=== PATIENT | female | born 1965 | race African-American/Black ===

== ENCOUNTER 2020-02-20 15:58 | Inpatient (IN) | payer MEDICARE, OTHER ==
[~2020-02-20] VITALS: Ht 162.6 cm; Wt 67.9 kg
[2020-02-20] MEDS ORDERED: IV NORMAL SALINE 1000ML BAG 1,000 ML IV ONE ×3 (16:45→17:30)
[2020-02-20 17:00] LABS: BASO # 0.1 x10^3/uL (0.0-0.2); BASO % 0 % (0-3); EOS # 0.1 x10^3/uL (0.0-0.7); EOS % 0 % (0-3); HEMATOCRIT 40.3 % (36.0-47.0); HEMOGLOBIN 13.4 g/dL (12.0-15.5); LYMPH # 1.8 x10^3/uL (1.0-4.8); LYMPH % 6 % (24-48); MEAN CORPUSCULAR HEMOGLOBIN 29 pg (25-35); MEAN CORPUSCULAR HGB CONC 33 g/dL (31-37); MEAN CORPUSCULAR VOLUME 86 fL (79-100); MONO # 1.5 x10^3/uL (0.0-1.1); MONO % 5 % (0-9); NEUT # 28.1 x10^3/uL (1.8-7.7); NEUT % 89 % (31-73); PLATELET COUNT 103 x10^3/uL (140-400); RED BLOOD COUNT 4.69 x10^6/uL (3.50-5.40); RED CELL DISTRIBUTION WIDTH 14.4 % (11.5-14.5); WHITE BLOOD COUNT 31.6 x10^3/uL (4.0-11.0)
[2020-02-20] MEDS ORDERED: ACETAMINOPHEN 500 MG TABLET PO ONE (17:00)
[2020-02-20] MEDS ORDERED: cefTRIAXone IV Push 1 GM VIAL. IVP ONE (17:00)
[2020-02-20 17:14] LABS: BILIRUBIN,URINE NEGATIVE (NEG); CLARITY,URINE CLOUDY; COLOR,URINE YELLOW; NITRITE,URINE NEGATIVE (NEG); PH,URINE 5.5 (<5.0-8.0); PROTEIN,URINE >=300 mg/dL (NEG-TRACE); UROBILINOGEN,URINE 0.2 mg/dL (0.2 mg/dL)
--- NOTE | 2020-02-20 17:15 | RAD ---
EXAM: PORTABLE CHEST 1V INDICATION: Reason: AMS / Spl. Instructions: / History: . TECHNIQUE: Single view COMPARISON: None FINDINGS: The heart size is normal. The great vessels appear unremarkable. There is no hilar or mediastinal mass. The lungs are clear. There is no pleural effusion or pneumothorax. There are no significant osseous abnormalities. IMPRESSION: No active cardiopulmonary disease. Electronically signed by: Jaron Harden MD (02/20/2020 5:12 PM) [facility] [place]
[2020-02-20 17:17] LABS: % BANDS 14 % (0-9); % LYMPHS 6 % (24-48); % MONOS 2 % (0-10); % SEGS 78 % (35-66); PLT ESTIMATE DECREASED (ADEQUATE)
[2020-02-20 17:20] LABS: RBC,URINE TNTC /HPF (0-2)
[2020-02-20 17:20] LABS: ALBUMIN/GLOBULIN RATIO 0.5 (1.0-1.7); CALCIUM 9.2 mg/dL (8.5-10.1); CREATININE 2.9 mg/dL (0.6-1.0); GFR 20.5; TOTAL BILIRUBIN 0.7 mg/dL (0.2-1.0); TOTAL PROTEIN 8.6 g/dL (6.4-8.2)
[2020-02-20 17:23] LABS: BACTERIA,URINE MANY /HPF (0-FEW); WBC,URINE TNTC /HPF (0-4)
[2020-02-20] MEDS ORDERED: IV NORMAL SALINE 1000ML BAG 1,000 ML IV SCH (17:43)
[2020-02-20] MEDS ORDERED: INSULIN REGULAR VIAL 100 UNIT in IV NORMAL SALINE 100ML 100 ML IV PRN (17:45)
[2020-02-20] MEDS ORDERED: POTASSIUM CHLORIDE 10MEQ 100 ML IV PRN ×2 (17:45)
[2020-02-20 17:51] LABS: ALBUMIN 2.8 g/dL (3.4-5.0)
[2020-02-20 18:01] LABS: BARBITURATES NEG (NEG); BENZODIAZEPINES NEG (NEG); CANNABINOIDS POS (NEG); COCAINE NEG (NEG); METHADONE NEG (NEG); OPIATES POS (NEG); PHENCYCLIDINE NEG (NEG)
[2020-02-20 18:06] LABS: AMPHETAMINE/METHAMPHETAMINE NEG (NEG)
[2020-02-20 18:12] LABS: PROTHROMBIN TIME PATIENT 17.3 SEC (11.7-14.0)
[2020-02-20] MEDS ORDERED: ACETAMINOPHEN 325 MG TABLET. PO PRN (20:45)
[2020-02-20] MEDS ORDERED: ONDANSETRON PF 4 MG/2 ML VIAL. IV PRN (20:45)
--- NOTE | 2020-02-20 21:01 | PHYS DOC ---
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 Patient appears altered, not a good historian. I am getting information from the nursing staff who informed me patient had a caregiver/boyfriend who reported patient has had nausea vomiting since yesterday and her blood sugar was taken today which was 400. Review of Systems: Review of Systems: Constitutional: Unable to assess patient is altered Eyes: Unable to assess patient is altered HENT: Unable to assess patient is altered Respiratory: Unable to assess patient is altered Cardiovascular: Unable to assess patient is altered GI: Reports nausea and vomiting, denies abdominal pain, bloody stools or diarrhea. [] : Unable to assess patient is altered Musculoskeletal: Unable to assess patient is altered Integument: Unable to assess patient is altered Neurologic: Unable to assess patient is altered Endocrine: Reports hyperglycemia Psychiatric: Unable to assess patient is altered Heart Score: Risk Factors: Risk Factors: DM, Current or recent (<one month) smoker, HTN, HLP, family history of CAD, obesity. Risk Scores: Score 0 - 3: 2.5% MACE over next 6 weeks - Discharge Home Score 4 - 6: 20.3% MACE over next 6 weeks - Admit for Clinical Observation Score 7 - 10: 72.7% MACE over next 6 weeks - Early Invasive Strategies Current Medications: Current Medications Medications (Trade) Dose Ordered Sig/[facility] Start Time Stop Time Status Last Admin Dose Admin Acetaminophen (Tylenol) 1,000 mg 1X ONCE 02/20/20 17:00 02/20/20 17:01 DC 02/20/20 17:44 1,000 MG Ceftriaxone Sodium (Rocephin) 1 gm 1X ONCE 02/20/20 17:00 02/20/20 17:01 DC 02/20/20 17:45 1 GM Sodium Chloride 1,000 ml @ 1,000 mls/hr 1X ONCE 02/20/20 17:30 02/20/20 18:29 DC 02/20/20 18:07 1,000 MLS/HR Allergies: Allergies: Allergies Coded Allergies Type Severity Reaction Last Updated Verified Unable to Assess 02/20/20 No Physical Exam: PE: Constitutional: Well developed, well nourished, ill-appearing patient HENT: Normocephalic, atraumatic, bilateral external ears normal, oropharynx moist, no oral exudates, nose normal. [] Eyes: PERRLA, EOMI, conjunctiva normal, no discharge. [] Neck: Normal range of motion, no tenderness, supple, no stridor. [] Cardiovascular: Tachycardic Lungs & Thorax: Bilateral breath sounds clear to auscultation [] Abdomen: Bowel sounds normal, soft, no tenderness, no masses, no pulsatile masses. [] Skin: Warm, dry, no erythema, no rash. [] Back: No tenderness, no CVA tenderness. [] Extremities: No tenderness, no cyanosis, no clubbing, ROM intact, no edema. [] Neurologic: Alert and oriented X 1, normal motor function, normal sensory function, no focal deficits noted. [] Psychologic: Flat affect, not following directions well Current Patient Data: Labs: Laboratory Tests Test 02/20/20 16:45 02/20/20 17:00 02/20/20 17:49 02/20/20 18:29 White Blood Count 31.6 x10^3/uL (4.0-11.0) H Red Blood Count 4.69 x10^6/uL (3.50-5.40) Hemoglobin 13.4 g/dL (12.0-15.5) Hematocrit 40.3 % (36.0-47.0) Mean Corpuscular Volume 86 fL (79-100) Mean Corpuscular Hemoglobin 29 pg (25-35) Mean Corpuscular Hemoglobin Concent 33 g/dL (31-37) Red Cell Distribution Width 14.4 % (11.5-14.5) Platelet Count 103 x10^3/uL (140-400) L Neutrophils (%) (Auto) 89 % (31-73) H Lymphocytes (%) (Auto) 6 % (24-48) L Monocytes (%) (Auto) 5 % (0-9) Eosinophils (%) (Auto) 0 % (0-3) Basophils (%) (Auto) 0 % (0-3) Neutrophils # (Auto) 28.1 x10^3/uL (1.8-7.7) H Lymphocytes # (Auto) 1.8 x10^3/uL (1.0-4.8) Monocytes # (Auto) 1.5 x10^3/uL (0.0-1.1) H Eosinophils # (Auto) 0.1 x10^3/uL (0.0-0.7) Basophils # (Auto) 0.1 x10^3/uL (0.0-0.2) Segmented Neutrophils % 78 % (35-66) H Band Neutrophils % 14 % (0-9) H Lymphocytes % 6 % (24-48) L Monocytes % 2 % (0-10) Platelet Estimate Decreased (ADEQUATE) Sodium Level 136 mmol/L (136-145) Potassium Level 4.0 mmol/L (3.5-5.1) Chloride Level 96 mmol/L (98-107) L Carbon Dioxide Level 24 mmol/L (21-32) Anion Gap 16 (6-14) H Blood Urea Nitrogen 39 mg/dL (7-20) H Creatinine 2.9 mg/dL (0.6-1.0) H Estimated GFR (Cockcroft-Gault) 20.5 BUN/Creatinine Ratio 13 (6-20) Glucose Level 735 mg/dL (70-99) *H Calcium Level 9.2 mg/dL (8.5-10.1) Magnesium Level 2.1 mg/dL (1.8-2.4) Total Bilirubin 0.7 mg/dL (0.2-1.0) Aspartate Amino Transferase (AST) 24 U/L (15-37) Alanine Aminotransferase (ALT) 15 U/L (14-59) Alkaline Phosphatase 128 U/L (46-116) H Ammonia < 10 mcmol/L (11-34) L Creatine Kinase 550 U/L (26-192) H Creatine Kinase MB (Mass) 1.9 ng/mL (0.0-3.6) Creatine Kinase MB Relative Index 0.3 % (0-4) Total Protein 8.6 g/dL (6.4-8.2) H Albumin 2.8 g/dL (3.4-5.0) L Albumin/Globulin Ratio 0.5 (1.0-1.7) L Lipase 57 U/L (73-393) L Procalcitonin > 125.00 ng/mL (0.00-0.10) H Ethyl Alcohol Level < 10 mg/dL (0-10) Urine Collection Type U cath Urine Color Yellow Urine Clarity Cloudy Urine pH 5.5 (<5.0-8.0) Urine Specific [place] 1.020 (1.000-1.030) Urine Protein >=300 mg/dL (NEG-TRACE) Urine Glucose (UA) >=1000 mg/dL (NEG) Urine Ketones (Stick) 15 mg/dL (NEG) Urine Blood Large (NEG) Urine Nitrite Negative (NEG) Urine Bilirubin Negative (NEG) Urine Urobilinogen Dipstick 0.2 mg/dL (0.2 mg/dL) Urine Leukocyte Esterase Small (NEG) Urine RBC Tntc /HPF (0-2) Urine WBC Tntc /HPF (0-4) Urine Squamous Epithelial Cells None /LPF Urine Bacteria Many /HPF (0-FEW) Urine Opiates Screen Pos (NEG) Urine Methadone Screen Neg (NEG) Urine Barbiturates Neg (NEG) Urine Phencyclidine Screen Neg (NEG) Urine Amphetamine/Methamphetamine Neg (NEG) Urine Benzodiazepines Screen Neg (NEG) Urine Cocaine Screen Neg (NEG) Urine Cannabinoids Screen Pos (NEG) Urine Ethyl Alcohol Neg (NEG) Prothrombin Time 17.3 SEC (11.7-14.0) H Prothrombin Time INR 1.5 (0.8-1.1) H Activated Partial Thromboplast Time 37 SEC (24-38) Lactic Acid Level 3.3 mmol/L (0.4-2.0) H Glucose (Fingerstick) 583 mg/dL (70-99) *H Test 02/20/20 19:41 Glucose (Fingerstick) 504 mg/dL (70-99) *H Laboratory Tests 02/20/20 16:45 Laboratory Tests 02/20/20 16:45 Vital Signs: Vital Signs Date Time Temp Pulse Resp B/P (MAP) Pulse Ox O2 Delivery O2 Flow Rate FiO2 02/20/20 18:26 133 152/81 (104) 99 Room Air 02/20/20 16:30 100.8 26 100.8 EKG: EKG: [] Radiology/Procedures: Radiology/Procedures: []PROCEDURE: PORTABLE CHEST 1V EXAM: PORTABLE CHEST 1V INDICATION: Reason: AMS / Spl. Instructions: / History: . TECHNIQUE: Single view COMPARISON: None FINDINGS: The heart size is normal. The great vessels appear unremarkable. There is no hilar or mediastinal mass. The lungs are clear. There is no pleural effusion or pneumothorax. There are no significant osseous abnormalities. IMPRESSION: No active cardiopulmonary disease. Electronically signed by: Marya Harden MD (02/20/2020 5:12 PM) [facility] [place] and SIGNED BY: MARYA HARDEN MD DATE: 02/20/20 572 Course & Med Decision Making: Course & Med Decision Making Pertinent Labs and Imaging studies reviewed. (See chart for details) This is a 54-year-old female patient presenting to the ED today complaining of nausea vomiting since yesterday as well as hyperglycemia. Patient is altered, very poor historian. Temperature on arrival to the ED is 100.8 with a heart rate of 149, respiration 26, blood pressure 142/77, O2 sats 99% on room air sepsis work-up was initiated CBC with a WBC of 31.9 with a left shift, CMP with creatinine of 2.9, BUN of 39, glucose of 735 with an anion gap of 16, lactic 3.3 Patient was given 3 L of IV fluids in the ED. Started on DKA protocol Spoke with Dr. Felder who accepted patient for admission Domonique Disclaimer: Domonique Disclaimer: This electronic medical record was generated, in whole or in part, using a voice recognition dictation system. Date and Time of Reassessment Date: Feb 20, 2020 Time: 17:00 Fluid Challenge Is the fluid challenge complet: No IBW Target Volume Used: Yes BMI > 30: Yes Vital Signs Vital Signs: Vital Signs Date Time Temp Pulse Resp B/P (MAP) Pulse Ox O2 Delivery O2 Flow Rate FiO2 02/20/20 18:26 133 152/81 (104) 99 Room Air 02/20/20 16:30 100.8 26 100.8 Temperature Source: Oral Respirations Respiratory Effort: Normal Respiratory Pattern: Normal Cardiovascular Pulse Rhythm: Regular Heart: Nml rate, reg. rhythm Lung Sounds Breath Sounds: Clear Capillary Refil Capillary Refill: Rt Hand > 3 seconds Peripheral Pulse Pulse Location: Monitor Pulse Strength: Normal (2+) Pulse Assessment Method: Monitor Integumentary Skin: Dry Skin Moisture: Clammy Skin Turgor: Normal Skin Color: warm Fingernail Color: WNL Departure Departure Impression: Primary Impression: Sepsis Qualified Codes: A41.9 - Sepsis, unspecified organism Additional Impressions: Person under investigation for COVID-19 DKA (diabetic ketoacidoses) Qualified Codes: E11.10 - Type 2 diabetes mellitus with ketoacidosis without coma Fever Qualified Codes: R50.9 - Fever, unspecified Nausea & vomiting Qualified Codes: R11.2 - Nausea with vomiting, unspecified Leukocytosis Qualified Codes: D72.829 - Elevated white blood cell count, unspecified Disposition: 09 ADMITTED INPATIENT Condition: STABLE Referrals: RUTH MATTA D.O. (PCP) Justicifation of Admission Dx: Justifications for Admission: Justification of Admission Dx: Yes Sepsis: End-Organ Dysfunction ANGEL NOBLE SHREDDER PICKER Feb 20, 2020 21:01
[2020-02-20] MEDS ORDERED: AZITHROMYCIN 500 MG in IV NORMAL SALINE 250ML 250 ML IV ONE (21:30)
[2020-02-20 22:00] VITALS: BP 145/80
[2020-02-20] MEDS ORDERED: IV 1/2 NORMAL SALINE 1,000 ML IV SCH (22:00)
[2020-02-20 22:53] LABS: CALCIUM 7.9 mg/dL (8.5-10.1); CREATININE 2.5 mg/dL (0.6-1.0); GFR 24.3; MAGNESIUM 2.1 mg/dL (1.8-2.4); PHOSPHORUS 1.6 mg/dL (2.6-4.7); POTASSIUM 3.2 mmol/L (3.5-5.1)
[2020-02-20] MEDS: POTASSIUM CHLORIDE 10MEQ 100 ML IV SCH (22:56)
[2020-02-20 23:00] VITALS: BP 146/83
[2020-02-20 23:18] LABS: BASE EXCESS ABG -3 mmol/L (-3-3); CORRECTED PCO2 ABG 30 mmHg; CORRECTED PH ABG 7.45; CORRECTED PO2 ABG 77 mmHg; HCO3 ABG 20 mmol/L (21-28); SAT O2 ABG 94 % (92-99)
[2020-02-20 23:19] LABS: FIO2 ABG 21; PCO2 ABG 29 mmHg (35-46); PO2 ABG 72 mmHg (75-108)
[2020-02-21] VITALS (19 sets, daily range): BP systolic 79–152; BP diastolic 43–98
[2020-02-21] MEDS ORDERED: DEXTROSE 50% 25 GM / 50ML DISP.SYRIN. IV PRN
[2020-02-21] MEDS ORDERED: IV 1/2 NORMAL SALINE 1,000 ML IV SCH
[2020-02-21] MEDS: POTASSIUM CHLORIDE 10MEQ 100 ML IV SCH ×3 (00:10→12:23)
[2020-02-21] MEDS: INSULIN LISPRO 300 UNITS/3 ML VIAL. SQ SCH ×5 (00:15→17:35)
[2020-02-21] MEDS: INSULIN GLARGINE SYRINGE. SQ SCH ×2 (00:29→08:57)
[2020-02-21] MEDS: IV 1/2 NORMAL SALINE 1,000 ML IV SCH ×4 (04:32→14:38)
--- NOTE | 2020-02-21 07:48 | PDOC ---
Infectious Disease Note Vital Sign Vital Signs Vital Signs Date Time Temp Pulse Resp B/P (MAP) Pulse Ox O2 Delivery O2 Flow Rate FiO2 02/21/20 06:00 123 20 145/81 (102) 96 Room Air 02/21/20 00:00 100.2 100.2 Labs Lab Laboratory Tests Test 02/20/20 16:45 02/20/20 17:00 02/20/20 17:49 02/20/20 18:29 White Blood Count 31.6 x10^3/uL (4.0-11.0) Red Blood Count 4.69 x10^6/uL (3.50-5.40) Hemoglobin 13.4 g/dL (12.0-15.5) Hematocrit 40.3 % (36.0-47.0) Mean Corpuscular Volume 86 fL (79-100) Mean Corpuscular Hemoglobin 29 pg (25-35) Mean Corpuscular Hemoglobin Concent 33 g/dL (31-37) Red Cell Distribution Width 14.4 % (11.5-14.5) Platelet Count 103 x10^3/uL (140-400) Neutrophils (%) (Auto) 89 % (31-73) Lymphocytes (%) (Auto) 6 % (24-48) Monocytes (%) (Auto) 5 % (0-9) Eosinophils (%) (Auto) 0 % (0-3) Basophils (%) (Auto) 0 % (0-3) Neutrophils # (Auto) 28.1 x10^3/uL (1.8-7.7) Lymphocytes # (Auto) 1.8 x10^3/uL (1.0-4.8) Monocytes # (Auto) 1.5 x10^3/uL (0.0-1.1) Eosinophils # (Auto) 0.1 x10^3/uL (0.0-0.7) Basophils # (Auto) 0.1 x10^3/uL (0.0-0.2) Segmented Neutrophils % 78 % (35-66) Band Neutrophils % 14 % (0-9) Lymphocytes % 6 % (24-48) Monocytes % 2 % (0-10) Platelet Estimate Decreased (ADEQUATE) Sodium Level 136 mmol/L (136-145) Potassium Level 4.0 mmol/L (3.5-5.1) Chloride Level 96 mmol/L (98-107) Carbon Dioxide Level 24 mmol/L (21-32) Anion Gap 16 (6-14) Blood Urea Nitrogen 39 mg/dL (7-20) Creatinine 2.9 mg/dL (0.6-1.0) Estimated GFR (Cockcroft-Gault) 20.5 BUN/Creatinine Ratio 13 (6-20) Glucose Level 735 mg/dL (70-99) Calcium Level 9.2 mg/dL (8.5-10.1) Magnesium Level 2.1 mg/dL (1.8-2.4) Total Bilirubin 0.7 mg/dL (0.2-1.0) Aspartate Amino Transf (AST/SGOT) 24 U/L (15-37) Alanine Aminotransferase (ALT/SGPT) 15 U/L (14-59) Alkaline Phosphatase 128 U/L (46-116) Ammonia < 10 mcmol/L (11-34) Creatine Kinase 550 U/L (26-192) Creatine Kinase MB (Mass) 1.9 ng/mL (0.0-3.6) Creatine Kinase MB Relative Index 0.3 % (0-4) Total Protein 8.6 g/dL (6.4-8.2) Albumin 2.8 g/dL (3.4-5.0) Albumin/Globulin Ratio 0.5 (1.0-1.7) Lipase 57 U/L (73-393) Procalcitonin > 125.00 ng/mL (0.00-0.10) Ethyl Alcohol Level < 10 mg/dL (0-10) Urine Collection Type U cath Urine Color Yellow Urine Clarity Cloudy Urine pH 5.5 (<5.0-8.0) Urine Specific [place] 1.020 (1.000-1.030) Urine Protein >=300 mg/dL (NEG-TRACE) Urine Glucose (UA) >=1000 mg/dL (NEG) Urine Ketones (Stick) 15 mg/dL (NEG) Urine Blood Large (NEG) Urine Nitrite Negative (NEG) Urine Bilirubin Negative (NEG) Urine Urobilinogen Dipstick 0.2 mg/dL (0.2 mg/dL) Urine Leukocyte Esterase Small (NEG) Urine RBC Tntc /HPF (0-2) Urine WBC Tntc /HPF (0-4) Urine Squamous Epithelial Cells None /LPF Urine Bacteria Many /HPF (0-FEW) Urine Opiates Screen Pos (NEG) Urine Methadone Screen Neg (NEG) Urine Barbiturates Neg (NEG) Urine Phencyclidine Screen Neg (NEG) Urine Amphetamine/Methamphetamine Neg (NEG) Urine Benzodiazepines Screen Neg (NEG) Urine Cocaine Screen Neg (NEG) Urine Cannabinoids Screen Pos (NEG) Urine Ethyl Alcohol Neg (NEG) Prothrombin Time 17.3 SEC (11.7-14.0) Prothromb Time International Ratio 1.5 (0.8-1.1) Activated Partial Thromboplast Time 37 SEC (24-38) Lactic Acid Level 3.3 mmol/L (0.4-2.0) Glucose (Fingerstick) 583 mg/dL (70-99) Test 02/20/20 19:41 02/20/20 20:59 02/20/20 22:17 02/20/20 22:25 Glucose (Fingerstick) 504 mg/dL (70-99) 356 mg/dL (70-99) 254 mg/dL (70-99) Sodium Level 146 mmol/L (136-145) Potassium Level 3.2 mmol/L (3.5-5.1) Chloride Level 108 mmol/L (98-107) Carbon Dioxide Level 24 mmol/L (21-32) Anion Gap 14 (6-14) Blood Urea Nitrogen 37 mg/dL (7-20) Creatinine 2.5 mg/dL (0.6-1.0) Estimated GFR (Cockcroft-Gault) 24.3 Glucose Level 275 mg/dL (70-99) Lactic Acid Level 2.6 mmol/L (0.4-2.0) Calcium Level 7.9 mg/dL (8.5-10.1) Phosphorus Level 1.6 mg/dL (2.6-4.7) Magnesium Level 2.1 mg/dL (1.8-2.4) Test 02/20/20 22:30 02/20/20 23:28 02/21/20 00:22 02/21/20 04:15 O2 Saturation 94 % (92-99) Arterial Blood pH 7.46 (7.35-7.45) Arterial Blood pH (Temp corrected) 7.45 Arterial Blood pCO2 at Patient Temp 29 mmHg (35-46) Arterial Blood pCO2 (Temp correct) 30 mmHg Arterial Blood pO2 at Patient Temp 72 mmHg (75-108) Arterial Blood pO2 (Temp corrected) 77 mmHg Arterial Blood HCO3 20 mmol/L (21-28) Arterial Blood Base Excess -3 mmol/L (-3-3) FiO2 21 Glucose (Fingerstick) 216 mg/dL (70-99) 191 mg/dL (70-99) 243 mg/dL (70-99) Objective Assessment Sepsis - POA Fever Leukocytosis UTI - POA 02/19 BEN Encephalopathy DKA Plan Plan of Care Given obvious previous healthcare exposure will dose Daptomycin (CXR clear and no resp symptoms/Cefepime and hold further Azithromycin F/u labs and cults Electrolytes per primary Critically ill 35 minss CC time Thank you # [id number] RAMA VARGAS MD Feb 21, 2020 07:48
[2020-02-21 08:25] LABS: BASO # 0.1 x10^3/uL (0.0-0.2); BASO % 0 % (0-3); EOS # 0.2 x10^3/uL (0.0-0.7); EOS % 1 % (0-3); HEMATOCRIT 35.6 % (36.0-47.0); HEMOGLOBIN 11.8 g/dL (12.0-15.5); LYMPH # 2.7 x10^3/uL (1.0-4.8); LYMPH % 11 % (24-48); MEAN CORPUSCULAR HEMOGLOBIN 28 pg (25-35); MEAN CORPUSCULAR HGB CONC 33 g/dL (31-37); MEAN CORPUSCULAR VOLUME 85 fL (79-100); MONO # 1.4 x10^3/uL (0.0-1.1); MONO % 6 % (0-9); NEUT # 20.9 x10^3/uL (1.8-7.7); NEUT % 83 % (31-73); PLATELET COUNT 88 x10^3/uL (140-400); RED BLOOD COUNT 4.19 x10^6/uL (3.50-5.40); RED CELL DISTRIBUTION WIDTH 14.3 % (11.5-14.5); WHITE BLOOD COUNT 25.3 x10^3/uL (4.0-11.0)
[2020-02-21 08:48] LABS: CALCIUM 7.4 mg/dL (8.5-10.1); CREATININE 1.8 mg/dL (0.6-1.0); GFR 35.5; MAGNESIUM 1.8 mg/dL (1.8-2.4); POTASSIUM 3.3 mmol/L (3.5-5.1)
[2020-02-21] MEDS: CEFEPIME HCL IV Push 1 GM VIAL. IVP SCH (08:57)
[2020-02-21] MEDS: DAPTOmycin (GENERIC) IVPB 450 MG in IV NORMAL SALINE 50ML 50 ML IV SCH (08:57)
--- NOTE | 2020-02-21 10:17 | PDOC1 ---
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 Apparently there were reports of glycemias in the excess of 400 and after evaluation in the emergency department she was found to be in DKA reason why we were asked to admit the patient for further evaluation and treatment. The patient denies any dietary transgressions the patient denies any recent sick contacts she is quite a poor historian and details are not very reliable. The patient is in no acute distress during my interview no neurological deficits evident no sore throat no headache and no cough sputum production no upper respiratory tract infection symptoms were reported by the patient. The patient denies any chest pain no palpitations no nausea vomiting diarrhea at the time of my evaluation and no other complaints were voiced. Reassurance has been provided and the plan of care has been explained in detail. Reports of her blood cultures were noted and she is on broad-spectrum antibiotics and our infectious disease managing consultant clinical professor is following along as well. Past Medical History Cardiovascular: HTN, Hyperlipidemia Endocrine: Diabetes Past Surgical History Past Surgical History: Other (Left BKA, right foot 1-3 digits amputated) Family History Family History: No Significant Social History Smoke: No ALCOHOL: none Drugs: None Current Problem List Problem List Problems Medical Problems: (1) DKA (diabetic ketoacidoses) Status: Acute (2) Fever Status: Acute (3) Leukocytosis Status: Acute (4) Nausea & vomiting Status: Acute (5) Person under investigation for COVID-19 Status: Acute (6) Sepsis Status: Acute Current Medications Current Medications Current Medications Medications (Trade) Dose Ordered Sig/Irwin Start Time Stop Time Status Last Admin Dose Admin Acetaminophen (Tylenol) 650 mg PRN Q4HRS PRN 02/20/20 20:45 02/21/20 20:44 Azithromycin 500 mg/Sodium Chloride 250 ml @ 250 mls/hr 1X ONCE 02/20/20 21:30 02/20/20 22:29 DC 02/20/20 22:57 250 MLS/HR Cefepime HCl (Maxipime) 1 gm Q12HR 02/21/20 09:00 02/21/20 08:57 1 GM Ceftriaxone Sodium (Rocephin) 1 gm 1X ONCE 02/20/20 17:00 02/20/20 17:01 DC 02/20/20 17:45 1 GM Daptomycin 450 mg/ Sodium Chloride 50 ml @ 100 mls/hr QODAY 02/21/20 09:00 02/21/20 08:57 100 MLS/HR Dextrose (Dextrose 50%-Water Syringe) 12.5 gm PRN Q15MIN PRN 02/21/20 00:00 Insulin Glargine (Lantus Syringe) 30 unit BID 02/21/20 00:15 02/21/20 08:57 30 UNIT Insulin Human Lispro (HumaLOG) 0-5 UNITS Q4HRS 02/21/20 00:15 02/21/20 07:50 4 UNITS Insulin Human Regular 100 unit/ Sodium Chloride 101 ml @ 0 mls/hr CONT PRN PRN 02/20/20 17:45 02/20/20 18:38 10.5 MLS/HR Ondansetron HCl (Zofran) 4 mg PRN Q8HRS PRN 02/20/20 20:45 02/21/20 20:44 Potassium Chloride/Water 100 ml @ 100 mls/hr Q1H 02/21/20 10:00 02/21/20 11:59 02/21/20 10:08 100 MLS/HR Potassium Phosphate 15 mmol/ Sodium Chloride 255 ml @ 62.5 mls/hr 1X ONCE 02/21/20 11:00 02/21/20 15:04 Sodium Chloride 1,000 ml @ 500 mls/hr Q2H 02/21/20 04:30 02/21/20 08:57 500 MLS/HR Allergies Allergies Allergies Coded Allergies Type Severity Reaction Last Updated Verified No Known Drug Allergies 02/21/20 No ROS Review of System CONSTITUTIONAL: No fever or chills EYES: No recent changes SKIN: No rash or itching CARDIOVASCULAR: No chest pain, syncope, palpitations, or edema RESPIRATORY: No SOB or cough GASTROINTESTINAL: No nausea, vomiting or abdominal pain NEUROLOGICAL: No headaches or weakness ENDOCRINE: No cold or heat intolerance GENITOURINARY: No urgency or frequency of urination MUSCULOSKELETAL: No back pain or joint pain LYMPHATICS: No enlarged lymph nodes PSYCHIATRIC: No anxiety or depression Unreliable Physical Exam Physical Exam GEN.: No apparent distress. Alert and oriented. HEENT: Head is normocephalic, atraumatic NECK: Supple. LUNGS: Clear to auscultation. HEART: RRR, S1, S2 present. Peripheral pulses intact ABDOMEN: Soft, nontender. Positive bowel sounds. EXTREMITIES: Without any cyanosis. Left BKA NEUROLOGIC: Normal speech, normal tone PSYCHIATRIC: Normal affect, normal mood. SKIN: No ulcerations Vitals Vitals Vital Signs Date Time Temp Pulse Resp B/P (MAP) Pulse Ox O2 Delivery O2 Flow Rate FiO2 02/21/20 09:00 130 23 122/65 (84) 97 Room Air 02/21/20 08:00 99.1 99.1 Labs Labs Laboratory Tests Test 02/20/20 16:45 02/20/20 17:00 02/20/20 17:49 02/20/20 18:29 White Blood Count 31.6 x10^3/uL (4.0-11.0) Red Blood Count 4.69 x10^6/uL (3.50-5.40) Hemoglobin 13.4 g/dL (12.0-15.5) Hematocrit 40.3 % (36.0-47.0) Mean Corpuscular Volume 86 fL (79-100) Mean Corpuscular Hemoglobin 29 pg (25-35) Mean Corpuscular Hemoglobin Concent 33 g/dL (31-37) Red Cell Distribution Width 14.4 % (11.5-14.5) Platelet Count 103 x10^3/uL (140-400) Neutrophils (%) (Auto) 89 % (31-73) Lymphocytes (%) (Auto) 6 % (24-48) Monocytes (%) (Auto) 5 % (0-9) Eosinophils (%) (Auto) 0 % (0-3) Basophils (%) (Auto) 0 % (0-3) Neutrophils # (Auto) 28.1 x10^3/uL (1.8-7.7) Lymphocytes # (Auto) 1.8 x10^3/uL (1.0-4.8) Monocytes # (Auto) 1.5 x10^3/uL (0.0-1.1) Eosinophils # (Auto) 0.1 x10^3/uL (0.0-0.7) Basophils # (Auto) 0.1 x10^3/uL (0.0-0.2) Segmented Neutrophils % 78 % (35-66) Band Neutrophils % 14 % (0-9) Lymphocytes % 6 % (24-48) Monocytes % 2 % (0-10) Platelet Estimate Decreased (ADEQUATE) Sodium Level 136 mmol/L (136-145) Potassium Level 4.0 mmol/L (3.5-5.1) Chloride Level 96 mmol/L (98-107) Carbon Dioxide Level 24 mmol/L (21-32) Anion Gap 16 (6-14) Blood Urea Nitrogen 39 mg/dL (7-20) Creatinine 2.9 mg/dL (0.6-1.0) Estimated GFR (Cockcroft-Gault) 20.5 BUN/Creatinine Ratio 13 (6-20) Glucose Level 735 mg/dL (70-99) Calcium Level 9.2 mg/dL (8.5-10.1) Magnesium Level 2.1 mg/dL (1.8-2.4) Total Bilirubin 0.7 mg/dL (0.2-1.0) Aspartate Amino Transf (AST/SGOT) 24 U/L (15-37) Alanine Aminotransferase (ALT/SGPT) 15 U/L (14-59) Alkaline Phosphatase 128 U/L (46-116) Ammonia < 10 mcmol/L (11-34) Creatine Kinase 550 U/L (26-192) Creatine Kinase MB (Mass) 1.9 ng/mL (0.0-3.6) Creatine Kinase MB Relative Index 0.3 % (0-4) Total Protein 8.6 g/dL (6.4-8.2) Albumin 2.8 g/dL (3.4-5.0) Albumin/Globulin Ratio 0.5 (1.0-1.7) Lipase 57 U/L (73-393) Procalcitonin > 125.00 ng/mL (0.00-0.10) Ethyl Alcohol Level < 10 mg/dL (0-10) Urine Collection Type U cath Urine Color Yellow Urine Clarity Cloudy Urine pH 5.5 (<5.0-8.0) Urine Specific [place] 1.020 (1.000-1.030) Urine Protein >=300 mg/dL (NEG-TRACE) Urine Glucose (UA) >=1000 mg/dL (NEG) Urine Ketones (Stick) 15 mg/dL (NEG) Urine Blood Large (NEG) Urine Nitrite Negative (NEG) Urine Bilirubin Negative (NEG) Urine Urobilinogen Dipstick 0.2 mg/dL (0.2 mg/dL) Urine Leukocyte Esterase Small (NEG) Urine RBC Tntc /HPF (0-2) Urine WBC Tntc /HPF (0-4) Urine Squamous Epithelial Cells None /LPF Urine Bacteria Many /HPF (0-FEW) Urine Opiates Screen Pos (NEG) Urine Methadone Screen Neg (NEG) Urine Barbiturates Neg (NEG) Urine Phencyclidine Screen Neg (NEG) Urine Amphetamine/Methamphetamine Neg (NEG) Urine Benzodiazepines Screen Neg (NEG) Urine Cocaine Screen Neg (NEG) Urine Cannabinoids Screen Pos (NEG) Urine Ethyl Alcohol Neg (NEG) Prothrombin Time 17.3 SEC (11.7-14.0) Prothromb Time International Ratio 1.5 (0.8-1.1) Activated Partial Thromboplast Time 37 SEC (24-38) Lactic Acid Level 3.3 mmol/L (0.4-2.0) Glucose (Fingerstick) 583 mg/dL (70-99) Test 02/20/20 19:41 02/20/20 20:59 02/20/20 22:17 02/20/20 22:25 Glucose (Fingerstick) 504 mg/dL (70-99) 356 mg/dL (70-99) 254 mg/dL (70-99) Sodium Level 146 mmol/L (136-145) Potassium Level 3.2 mmol/L (3.5-5.1) Chloride Level 108 mmol/L (98-107) Carbon Dioxide Level 24 mmol/L (21-32) Anion Gap 14 (6-14) Blood Urea Nitrogen 37 mg/dL (7-20) Creatinine 2.5 mg/dL (0.6-1.0) Estimated GFR (Cockcroft-Gault) 24.3 Glucose Level 275 mg/dL (70-99) Lactic Acid Level 2.6 mmol/L (0.4-2.0) Calcium Level 7.9 mg/dL (8.5-10.1) Phosphorus Level 1.6 mg/dL (2.6-4.7) Magnesium Level 2.1 mg/dL (1.8-2.4) Test 02/20/20 22:30 02/20/20 23:28 02/21/20 00:22 02/21/20 04:15 O2 Saturation 94 % (92-99) Arterial Blood pH 7.46 (7.35-7.45) Arterial Blood pH (Temp corrected) 7.45 Arterial Blood pCO2 at Patient Temp 29 mmHg (35-46) Arterial Blood pCO2 (Temp correct) 30 mmHg Arterial Blood pO2 at Patient Temp 72 mmHg (75-108) Arterial Blood pO2 (Temp corrected) 77 mmHg Arterial Blood HCO3 20 mmol/L (21-28) Arterial Blood Base Excess -3 mmol/L (-3-3) FiO2 21 Glucose (Fingerstick) 216 mg/dL (70-99) 191 mg/dL (70-99) 243 mg/dL (70-99) Test 02/21/20 07:45 02/21/20 08:07 Glucose (Fingerstick) 275 mg/dL (70-99) White Blood Count 25.3 x10^3/uL (4.0-11.0) Red Blood Count 4.19 x10^6/uL (3.50-5.40) Hemoglobin 11.8 g/dL (12.0-15.5) Hematocrit 35.6 % (36.0-47.0) Mean Corpuscular Volume 85 fL (79-100) Mean Corpuscular Hemoglobin 28 pg (25-35) Mean Corpuscular Hemoglobin Concent 33 g/dL (31-37) Red Cell Distribution Width 14.3 % (11.5-14.5) Platelet Count 88 x10^3/uL (140-400) Neutrophils (%) (Auto) 83 % (31-73) Lymphocytes (%) (Auto) 11 % (24-48) Monocytes (%) (Auto) 6 % (0-9) Eosinophils (%) (Auto) 1 % (0-3) Basophils (%) (Auto) 0 % (0-3) Neutrophils # (Auto) 20.9 x10^3/uL (1.8-7.7) Lymphocytes # (Auto) 2.7 x10^3/uL (1.0-4.8) Monocytes # (Auto) 1.4 x10^3/uL (0.0-1.1) Eosinophils # (Auto) 0.2 x10^3/uL (0.0-0.7) Basophils # (Auto) 0.1 x10^3/uL (0.0-0.2) Sodium Level 140 mmol/L (136-145) Potassium Level 3.3 mmol/L (3.5-5.1) Chloride Level 104 mmol/L (98-107) Carbon Dioxide Level 23 mmol/L (21-32) Anion Gap 13 (6-14) Blood Urea Nitrogen 29 mg/dL (7-20) Creatinine 1.8 mg/dL (0.6-1.0) Estimated GFR (Cockcroft-Gault) 35.5 Glucose Level 242 mg/dL (70-99) Calcium Level 7.4 mg/dL (8.5-10.1) Phosphorus Level 2.0 mg/dL (2.6-4.7) Magnesium Level 1.8 mg/dL (1.8-2.4) Laboratory Tests Test 02/20/20 16:45 02/20/20 17:00 02/20/20 17:49 02/20/20 18:29 White Blood Count 31.6 x10^3/uL (4.0-11.0) Red Blood Count 4.69 x10^6/uL (3.50-5.40) Hemoglobin 13.4 g/dL (12.0-15.5) Hematocrit 40.3 % (36.0-47.0) Mean Corpuscular Volume 86 fL (79-100) Mean Corpuscular Hemoglobin 29 pg (25-35) Mean Corpuscular Hemoglobin Concent 33 g/dL (31-37) Red Cell Distribution Width 14.4 % (11.5-14.5) Platelet Count 103 x10^3/uL (140-400) Neutrophils (%) (Auto) 89 % (31-73) Lymphocytes (%) (Auto) 6 % (24-48) Monocytes (%) (Auto) 5 % (0-9) Eosinophils (%) (Auto) 0 % (0-3) Basophils (%) (Auto) 0 % (0-3) Neutrophils # (Auto) 28.1 x10^3/uL (1.8-7.7) Lymphocytes # (Auto) 1.8 x10^3/uL (1.0-4.8) Monocytes # (Auto) 1.5 x10^3/uL (0.0-1.1) Eosinophils # (Auto) 0.1 x10^3/uL (0.0-0.7) Basophils # (Auto) 0.1 x10^3/uL (0.0-0.2) Segmented Neutrophils % 78 % (35-66) Band Neutrophils % 14 % (0-9) Lymphocytes % 6 % (24-48) Monocytes % 2 % (0-10) Platelet Estimate Decreased (ADEQUATE) Sodium Level 136 mmol/L (136-145) Potassium Level 4.0 mmol/L (3.5-5.1) Chloride Level 96 mmol/L (98-107) Carbon Dioxide Level 24 mmol/L (21-32) Anion Gap 16 (6-14) Blood Urea Nitrogen 39 mg/dL (7-20) Creatinine 2.9 mg/dL (0.6-1.0) Estimated GFR (Cockcroft-Gault) 20.5 BUN/Creatinine Ratio 13 (6-20) Glucose Level 735 mg/dL (70-99) Calcium Level 9.2 mg/dL (8.5-10.1) Magnesium Level 2.1 mg/dL (1.8-2.4) Total Bilirubin 0.7 mg/dL (0.2-1.0) Aspartate Amino Transf (AST/SGOT) 24 U/L (15-37) Alanine Aminotransferase (ALT/SGPT) 15 U/L (14-59) Alkaline Phosphatase 128 U/L (46-116) Ammonia < 10 mcmol/L (11-34) Creatine Kinase 550 U/L (26-192) Creatine Kinase MB (Mass) 1.9 ng/mL (0.0-3.6) Creatine Kinase MB Relative Index 0.3 % (0-4) Total Protein 8.6 g/dL (6.4-8.2) Albumin 2.8 g/dL (3.4-5.0) Albumin/Globulin Ratio 0.5 (1.0-1.7) Lipase 57 U/L (73-393) Procalcitonin > 125.00 ng/mL (0.00-0.10) Ethyl Alcohol Level < 10 mg/dL (0-10) Urine Collection Type U cath Urine Color Yellow Urine Clarity Cloudy Urine pH 5.5 (<5.0-8.0) Urine Specific [place] 1.020 (1.000-1.030) Urine Protein >=300 mg/dL (NEG-TRACE) Urine Glucose (UA) >=1000 mg/dL (NEG) Urine Ketones (Stick) 15 mg/dL (NEG) Urine Blood Large (NEG) Urine Nitrite Negative (NEG) Urine Bilirubin Negative (NEG) Urine Urobilinogen Dipstick 0.2 mg/dL (0.2 mg/dL) Urine Leukocyte Esterase Small (NEG) Urine RBC Tntc /HPF (0-2) Urine WBC Tntc /HPF (0-4) Urine Squamous Epithelial Cells None /LPF Urine Bacteria Many /HPF (0-FEW) Urine Opiates Screen Pos (NEG) Urine Methadone Screen Neg (NEG) Urine Barbiturates Neg (NEG) Urine Phencyclidine Screen Neg (NEG) Urine Amphetamine/Methamphetamine Neg (NEG) Urine Benzodiazepines Screen Neg (NEG) Urine Cocaine Screen Neg (NEG) Urine Cannabinoids Screen Pos (NEG) Urine Ethyl Alcohol Neg (NEG) Prothrombin Time 17.3 SEC (11.7-14.0) Prothromb Time International Ratio 1.5 (0.8-1.1) Activated Partial Thromboplast Time 37 SEC (24-38) Lactic Acid Level 3.3 mmol/L (0.4-2.0) Glucose (Fingerstick) 583 mg/dL (70-99) Test 02/20/20 19:41 02/20/20 20:59 02/20/20 22:17 02/20/20 22:25 Glucose (Fingerstick) 504 mg/dL (70-99) 356 mg/dL (70-99) 254 mg/dL (70-99) Sodium Level 146 mmol/L (136-145) Potassium Level 3.2 mmol/L (3.5-5.1) Chloride Level 108 mmol/L (98-107) Carbon Dioxide Level 24 mmol/L (21-32) Anion Gap 14 (6-14) Blood Urea Nitrogen 37 mg/dL (7-20) Creatinine 2.5 mg/dL (0.6-1.0) Estimated GFR (Cockcroft-Gault) 24.3 Glucose Level 275 mg/dL (70-99) Lactic Acid Level 2.6 mmol/L (0.4-2.0) Calcium Level 7.9 mg/dL (8.5-10.1) Phosphorus Level 1.6 mg/dL (2.6-4.7) Magnesium Level 2.1 mg/dL (1.8-2.4) Test 02/20/20 22:30 02/20/20 23:28 02/21/20 00:22 02/21/20 04:15 O2 Saturation 94 % (92-99) Arterial Blood pH 7.46 (7.35-7.45) Arterial Blood pH (Temp corrected) 7.45 Arterial Blood pCO2 at Patient Temp 29 mmHg (35-46) Arterial Blood pCO2 (Temp correct) 30 mmHg Arterial Blood pO2 at Patient Temp 72 mmHg (75-108) Arterial Blood pO2 (Temp corrected) 77 mmHg Arterial Blood HCO3 20 mmol/L (21-28) Arterial Blood Base Excess -3 mmol/L (-3-3) FiO2 21 Glucose (Fingerstick) 216 mg/dL (70-99) 191 mg/dL (70-99) 243 mg/dL (70-99) Test 02/21/20 07:45 02/21/20 08:07 Glucose (Fingerstick) 275 mg/dL (70-99) White Blood Count 25.3 x10^3/uL (4.0-11.0) Red Blood Count 4.19 x10^6/uL (3.50-5.40) Hemoglobin 11.8 g/dL (12.0-15.5) Hematocrit 35.6 % (36.0-47.0) Mean Corpuscular Volume 85 fL (79-100) Mean Corpuscular Hemoglobin 28 pg (25-35) Mean Corpuscular Hemoglobin Concent 33 g/dL (31-37) Red Cell Distribution Width 14.3 % (11.5-14.5) Platelet Count 88 x10^3/uL (140-400) Neutrophils (%) (Auto) 83 % (31-73) Lymphocytes (%) (Auto) 11 % (24-48) Monocytes (%) (Auto) 6 % (0-9) Eosinophils (%) (Auto) 1 % (0-3) Basophils (%) (Auto) 0 % (0-3) Neutrophils # (Auto) 20.9 x10^3/uL (1.8-7.7) Lymphocytes # (Auto) 2.7 x10^3/uL (1.0-4.8) Monocytes # (Auto) 1.4 x10^3/uL (0.0-1.1) Eosinophils # (Auto) 0.2 x10^3/uL (0.0-0.7) Basophils # (Auto) 0.1 x10^3/uL (0.0-0.2) Sodium Level 140 mmol/L (136-145) Potassium Level 3.3 mmol/L (3.5-5.1) Chloride Level 104 mmol/L (98-107) Carbon Dioxide Level 23 mmol/L (21-32) Anion Gap 13 (6-14) Blood Urea Nitrogen 29 mg/dL (7-20) Creatinine 1.8 mg/dL (0.6-1.0) Estimated GFR (Cockcroft-Gault) 35.5 Glucose Level 242 mg/dL (70-99) Calcium Level 7.4 mg/dL (8.5-10.1) Phosphorus Level 2.0 mg/dL (2.6-4.7) Magnesium Level 1.8 mg/dL (1.8-2.4) VTE Prophylaxis Ordered VTE Prophylaxis Devices: No VTE Pharmacological Prophylaxi: Yes Assessment/Plan Assessment/Plan Hyperosmolar nonketotic state Leukocytosis most likely secondary to severe dehydration Gram-positive cocci in clusters bacteremia Normocytic anemia Thrombocytopenia which could be related to infectious process Acute renal failure secondary to vasomotor nephropathy most likely Talk screen positive for opiates and marijuana Plan Continue with long acting insulin Replace electrolytes as needed Continue with broad-spectrum antibiotic as per ID managing consultant clinical professor with daptomycin and cefepime Follow labs in the a.m. Patient may be transferred out of the intensive care unit Further recommendations based on the clinical course Patient may start diabetic diet DVT prophylaxis with heparin, will keep an eye on the platelets moving forward Justicifation of Admission Dx: Justifications for Admission: Justification of Admission Dx: Yes Sepsis: End-Organ Dysfunction ELYSE JOHN MD Feb 21, 2020 10:17
--- NOTE | 2020-02-21 10:45 | CONS ---
DATE OF CONSULTATION: 02/21/2020 INFECTIOUS DISEASE CONSULTATION PATIENT'S ROOM: ICU 16. REQUESTING PHYSICIAN: Roberto Felder MD REASON FOR CONSULTATION: Sepsis, fever. HISTORY OF PRESENT ILLNESS: The patient is a 54-year-old female with a history of diabetes. She is a very poor historian. She presented to [facility] on the evening of 02/19 with complaints of nausea and vomiting that began yesterday. In discussion with her, she is uncertain how long she has been sick. She had a little subjective fevers. She has some nausea, some vomiting. Denies any throwing up any blood. She denies any shortness of air or gross cough. She denies any dysuria, frequency, or urgency. No cramps or diarrhea. She is uncertain where she is and she is unable to tell me where she has had previous healthcare administer. She does state that she is feeling better. PAST MEDICAL HISTORY: According to chart is positive for diabetes, hypertension, history of CVA. PAST SURGICAL HISTORY: Positive for left BKA and right foot one-three toes amputated. REVIEW OF SYSTEMS: Otherwise negative except for what is mentioned above. ALLERGIES: She is uncertain if she is allergic to any medications. SOCIAL HISTORY: She denies or is unable to say if she has ever smoked or take any drugs. Denies any alcohol, uncertain if she has any pets at home. FAMILY HISTORY: Noncontributory. CURRENT MEDICATIONS: Include azithromycin x 1, potassium, Rocephin x 1, insulin. Other meds are available and reviewed in the chart. PHYSICAL EXAMINATION: VITAL SIGNS: On arrival, she had a temperature of 100.8, most recent 100.2; pulse 123; respirations 20; blood pressure 145/81; satting 96% on room air. CONSTITUTIONAL: She is alert. She is cooperative. She is slow to respond to questions. She is in no acute distress. HEENT: Pupils equal and reactive. She has normal conjunctivae. Oral cavity, pharynx is clear. She is edentulous. NECK: Supple, no JVD. No nuchal rigidity. LUNGS: Clear to auscultation. HEART: S1, S2, mild tachycardic. ABDOMEN: Soft, nontender, no guarding, no rebound. GENITOURINARY: Ojeda is in place. EXTREMITIES: Left BKA. Right extremity without edema. She has a well-healed scar in her first three toes. SKIN: Without signs of rash. She does have mitts in place. Peripheral IVs. NEUROLOGIC: She follows simple commands, answers questions, but she is not oriented to place or time. PSYCHIATRIC: Affect is somewhat flat. LABORATORY DATA: White count was 31.6, hemoglobin of 13.4, platelets of 103, segs are 78, bands 14, lymphs 6. Creatinine was 2.5, glucose of 735 on arrival. Her creatinine was 2.9 on arrival. She had normal liver function study tests. Procalcitonin was greater than 125. Creatine kinase of 550. Albumin 2.8, lipase 57. Most recent lactic of 2.6. Chest x-ray without acute findings. IMPRESSION: 1. Sepsis present on admission. 2. Fever. 3. Leukocytosis. 4. Urinary tract infection, present on admission, 02/20/2020. 5. Acute kidney injury. 6. Encephalopathy. 7. Diabetic ketoacidosis. RECOMMENDATIONS: Given an obvious previous healthcare exposure, we will dose daptomycin, avoiding vancomycin. With her acute kidney injury, her chest x-ray is clear. She has no respiratory symptoms. Also, we will dose cefepime and hold further azithromycin. We will follow up laboratory values and cultures. Electrolytes per primary. She is critically ill and 35 minutes critical care time. Thank you for asking us to participate in the patient's care. Should you have any questions, please do not hesitate to contact me. RAMA VARGAS MD DR: ANGUS/barry JOB#: [id number] / [id number]
[2020-02-21] MEDS ORDERED: POTASSIUM PHOS,M-BASIC-D-BASIC 15 MMOL in IV NORMAL SALINE 250ML 250 ML IV ONE (11:00)
[2020-02-21] MEDS: POTASSIUM CHLORIDE 10MEQ 100 ML IV PRN ×2 (11:10→12:22)
[2020-02-21] MEDS: HEPARIN for SUB-Q USE 5,000 UNIT/ML VIAL. SQ SCH (15:09)
--- NOTE | 2020-02-21 16:32 | NUR ---
SS following for discharge planning. SS reviewed pt chart and discussed with pt RN. Pt is from home with caregiver and is currently on room air. Pt on IV Cefepime and Daptomycin. COVID19 negative. SS will continue to follow for discharge planning.
[2020-02-22] VITALS (8 sets, daily range): BP systolic 137–166; BP diastolic 76–103
[2020-02-22 00:04] LABS: BASE EXCESS ABG -5 mmol/L (-3-3); CORRECTED PCO2 ABG 28 mmHg; CORRECTED PH ABG 7.44; CORRECTED PO2 ABG 63 mmHg; HCO3 ABG 18 mmol/L (21-28); PCO2 ABG 27 mmHg (35-46); PO2 ABG 60 mmHg (75-108); SAT O2 ABG 91 % (92-99)
[2020-02-22 00:05] LABS: FIO2 ABG 24
[2020-02-22] MEDS ORDERED: INSU100I13 SQ (00:23)
[2020-02-22] MEDS ORDERED: INSU100V6 SQ (00:23)
[2020-02-22] MEDS ORDERED: AMLO10TA8 PO (00:23)
--- NOTE | 2020-02-22 00:50 | NUR ---
Rapid Response Note: Rapid response called by patient's RN for decreased BP, tachycardia, and patient cold and clammy. Upon arrival patient alert/orientedx4, cooperative and breathing 40 breaths a min. HR 153, BP 94/23 and O2 saturation 93% on 2LNC. Patient is cold and diaphoretic but denies any chest pain or any generalized discomfort; she does state she is feeling anxious though. Heart tones S1S2, RRR, tele ST, no edema seen and bilat radial and right pedal pulse +2 to palpation--patient denies palpitation. Lungs sounds are softly coarse with expiratory wheeze anteriorly and posteriorly; on 2LNC O2 sats remained 93-96%. FSBS at 2347 was 257. ABGs at 0004 pH 7.45, pCO2 27, pO2 60, HCO3 18.2 with BE -4.6. By 0010 patient stated she was feeling better, she is no longer diaphoretic, RR now 26, BP 163/96 and O2 sat 94% but HR remains upper 140's. Patient also stated she had been thinking was becoming very worried; she states she does not take any home meds for anxiety. Patient does not have an IV access per RN since beginning of shift and she has attempted multiple times without access, RN also stated patient has not been on any maintenance IVF but does have antibiotics ordered. Dr Mamadou santos, returned page at [phone], notified of above and plan to obtain BMP too. Orders received to start NS at 125CC/HR for 2liters, Ativan 1MG IVP PRN Q4HRS for anxiety and get BMP--call if abnormal. RN and patient notified of orders; patient states she is feeling much better now, RR 22. Accu-cath placed in right upper arm. See vital signs, lab, and IV intervention. Addendum: 02/22/20 at 0216 by ESTUARDO THORPE RN Amended: Links added.
[2020-02-22 01:03] LABS: CALCIUM 8.1 mg/dL (8.5-10.1); CREATININE 1.6 mg/dL (0.6-1.0); GFR 40.6
[2020-02-22] MEDS: IV NORMAL SALINE 1000ML BAG 1,000 ML IV SCH ×2 (01:14→08:58)
[2020-02-22] MEDS: INSULIN GLARGINE SYRINGE. SQ SCH ×3 (01:24→21:49)
[2020-02-22] MEDS: INSULIN LISPRO 300 UNITS/3 ML VIAL. SQ SCH ×4 (01:25→18:35)
[2020-02-22] MEDS: CEFEPIME HCL IV Push 1 GM VIAL. IVP SCH ×3 (01:31→21:41)
[2020-02-22] MEDS: HEPARIN for SUB-Q USE 5,000 UNIT/ML VIAL. SQ SCH ×4 (01:44→21:50)
[2020-02-22 08:30] LABS: CALCIUM 7.8 mg/dL (8.5-10.1); CREATININE 1.6 mg/dL (0.6-1.0); GFR 40.6; POTASSIUM 3.7 mmol/L (3.5-5.1)
--- NOTE | 2020-02-22 09:58 | NUR ---
SW following. Discussed with RN, pt from home with roommate, ada diet. Pt currently on IV abx. SW will continue to follow.
--- NOTE | 2020-02-22 10:20 | PDOC ---
Infectious Disease Note Subjective Subjective Feels better. Previously had treatment at [facility] Denies F/C/S/N/V/D/SOA Vital Sign Vital Signs Vital Signs Date Time Temp Pulse Resp B/P (MAP) Pulse Ox O2 Delivery O2 Flow Rate FiO2 02/22/20 07:00 98.1 145 20 164/103 (123) 95 Room Air 98.1 02/22/20 00:15 2.0 Physical Exam PHYSICAL EXAM CONSTITUTIONAL: She is alert. She is cooperative. She is slow to respond to questions but better. She is in no acute distress. HEENT: Pupils equal and reactive. She has normal conjunctivae. Oral cavity, pharynx is clear. She is edentulous. NECK: Supple, no JVD. No nuchal rigidity. LUNGS: Crackles and on 02 HEART: S1, S2, mild tachycardic. ABDOMEN: Soft, nontender, no guarding, no rebound.- distended GENITOURINARY: Ojeda is in place. EXTREMITIES: Left BKA. Right extremity without edema. She has a well-healed scar in her first three toes. SKIN: Without signs of rash. She does have mitts in place. Peripheral IVs. NEUROLOGIC: She follows simple commands, answers questions, but she is not oriented to place or time. PSYCHIATRIC: Affect is somewhat flat. PICC line is clean Labs Lab Laboratory Tests Test 02/21/20 12:12 02/21/20 17:28 02/21/20 20:54 02/21/20 23:47 Glucose (Fingerstick) 162 mg/dL (70-99) 236 mg/dL (70-99) 258 mg/dL (70-99) 257 mg/dL (70-99) Test 02/22/20 00:00 02/22/20 00:40 02/22/20 06:06 02/22/20 07:45 O2 Saturation 91 % (92-99) Arterial Blood pH 7.45 (7.35-7.45) Arterial Blood pH (Temp corrected) 7.44 Arterial Blood pCO2 at Patient Temp 27 mmHg (35-46) Arterial Blood pCO2 (Temp correct) 28 mmHg Arterial Blood pO2 at Patient Temp 60 mmHg (75-108) Arterial Blood pO2 (Temp corrected) 63 mmHg Arterial Blood HCO3 18 mmol/L (21-28) Arterial Blood Base Excess -5 mmol/L (-3-3) FiO2 24 Sodium Level 138 mmol/L (136-145) 139 mmol/L (136-145) Potassium Level 4.0 mmol/L (3.5-5.1) 3.7 mmol/L (3.5-5.1) Chloride Level 104 mmol/L (98-107) 104 mmol/L (98-107) Carbon Dioxide Level 22 mmol/L (21-32) 21 mmol/L (21-32) Anion Gap 12 (6-14) 14 (6-14) Blood Urea Nitrogen 22 mg/dL (7-20) 20 mg/dL (7-20) Creatinine 1.6 mg/dL (0.6-1.0) 1.6 mg/dL (0.6-1.0) Estimated GFR (Cockcroft-Gault) 40.6 40.6 Glucose Level 257 mg/dL (70-99) 236 mg/dL (70-99) Calcium Level 8.1 mg/dL (8.5-10.1) 7.8 mg/dL (8.5-10.1) Glucose (Fingerstick) 270 mg/dL (70-99) Phosphorus Level 2.1 mg/dL (2.6-4.7) Micro Microbiology 02/20/20 Blood Culture - Preliminary, Resulted Objective Assessment Staph aureus sepsis 02/19 Sepsis - POA Fever Leukocytosis -some better UTI - POA 02/19 BEN Encephalopathy - slow resolution but better DKA PICC placed 02/20 Plan Plan of Care CXR and BNP now Hold IV fluids - d/w nursing ECHO Repeat blood cults in am D/w micro and sensitivity will be available tomorrow Cont Daptomycin /Cefepime F/u labs and cults Electrolytes per primary RAMA VARGAS MD Feb 22, 2020 10:20
[2020-02-22] MEDS ORDERED: FUROSEMIDE 40 MG/4 ML VIAL. IVP ONE (12:00)
[2020-02-22] MEDS: METOPROLOL TARTRATE 5 MG/5 ML VIAL. IVP PRN (12:23)
--- NOTE | 2020-02-22 15:28 | RAD ---
EXAMINATION: CHEST AP ONLY CLINICAL HISTORY: Reason: SOA / Spl. Instructions: / History: EXAM DATE/TIME: 02/22/2020 10:35 AM COMPARISON: 02/20/2020 FINDINGS: Lines, tubes, and devices: None. Cardiomediastinal silhouette: Normal heart size. Aortic atherosclerotic calcification. Lungs and pleura: Mild bibasilar opacities and small bilateral pleural effusions, greater on the left. Pulmonary vasculature unremarkable. Bones and soft tissues: Regional osseous structures unchanged. IMPRESSION: New bibasilar airspace disease and small bilateral pleural effusions, greater on the left. Electronically signed by: Brady Belcher DO (02/22/2020 3:25 PM) [id number]
--- NOTE | 2020-02-22 16:44 | CARD ---
MR#: [id number] Date of Study: 02/22/2020 Ordering Physician: RAMA VARGAS, Referring Physician: RAMA VARGAS, Tech: Liudmila Richter APPROVED REPORT EXAM: Two-dimensional and M-mode echocardiogram with Doppler and color Doppler. Other Information Quality : AverageHR: 131bpm INDICATION Sepsis RISK FACTORS Hypertension Hyperlipidemia Diabetes Smoking 2D DIMENSIONS RVDd3.2 (2.9-3.5cm)Left Atrium(2D)3.3 (1.6-4.0cm) IVSd1.1 (0.7-1.1cm)Aortic Root(2D)2.9 (2.0-3.7cm) LVDd5.0 (3.9-5.9cm)LVOT Diameter1.9 (1.8-2.4cm) PWd1.1 (0.7-1.1cm)LVDs3.7 (2.5-4.0cm) FS (%) 25.8 %SV60.0 ml Aortic Valve AoV Peak Mark.106.0cm/sAoV VTI17.0cm AO Peak GR.3.2mmHgLVOT Peak Mark.101.4cm/s AO Mean GR.3mmHgAVA (VMAX)2.82cm2 Pulmonary Valve PV Peak Dmaueizs20.2cm/s LEFT VENTRICLE The left ventricle is normal size. There is mild concentric left ventricular hypertrophy. The systoli c function is severely impaired. The Ejection Fraction is 20-25%. There is severe global hypokinesis of the left ventricle. Diastology indeterminate due to high heart rate. RIGHT VENTRICLE The right ventricle is normal size. There is normal right ventricular wall thickness. The right ventr icular systolic function is normal. ATRIA The left atrium size is normal. The right atrium size is normal. The interatrial septum is intact wit h no evidence for an atrial septal defect or patent foramen ovale as noted on 2-D or Doppler imaging. AORTIC VALVE The aortic valve is normal in structure and function. Doppler and Color Flow revealed no significant aortic regurgitation. There is no significant aortic valvular stenosis. MITRAL VALVE The mitral valve is normal in structure and function. There is no evidence of mitral valve prolapse. There is no mitral valve stenosis. Doppler and Color-flow revealed mild mitral regurgitation. TRICUSPID VALVE The tricuspid valve is normal in structure and function. Doppler and Color Flow revealed trace tricus pid regurgitation with a estimated PAP of 21 mmHg. There is no tricuspid valve stenosis. PULMONIC VALVE The pulmonic valve is not well visualized. Doppler and Color Flow revealed no pulmonic valvular regur gitation. GREAT VESSELS The aortic root is normal in size. The IVC is normal in size and collapses >50% with inspiration. PERICARDIAL EFFUSION There is no evidence of significant pericardial effusion. Critical Notification Critical Value: No <Conclusion> The left ventricle is normal size. The systolic function is severely impaired. The Ejection Fraction is 20-25%. There is severe global hypokinesis of the left ventricle. There is mild concentric left ventricular hypertrophy. Doppler and Color Flow revealed no significant aortic regurgitation. There is no significant aortic valvular stenosis. Doppler and Color-flow revealed mild mitral regurgitation. Doppler and Color Flow revealed trace tricuspid regurgitation with a estimated PAP of 21 mmHg. Signed by : Uche Lott MD Electronically Approved : 02/22/2020 16:44:11
--- NOTE | 2020-02-22 17:32 | PDOC ---
PROGRESS NOTES Date of Service: DATE: 02/22/20 TIME: 17:29 Chief Complaint Chief Complaint DKA History of Present Illness History of Present Illness Patient states she feels better today. Informed patient of her positive staph blood cultures, which likely contributed to her hyperglycemic state. Currently treating with cefepime and daptomycin. Echo pending. Vitals Vitals Vital Signs Date Time Temp Pulse Resp B/P (MAP) Pulse Ox O2 Delivery O2 Flow Rate FiO2 02/22/20 15:00 98.8 133 18 148/91 (110) 100 Room Air 2.0 98.8 Physical Exam Physical Exam CONSTITUTIONAL: She is alert. She is cooperative. She is slow to respond to questions but better. She is in no acute distress. HEENT: Pupils equal and reactive. She has normal conjunctivae. Oral cavity, pharynx is clear. She is edentulous. NECK: Supple, no JVD. No nuchal rigidity. LUNGS: Crackles and on 02 HEART: S1, S2, mild tachycardic. ABDOMEN: Soft, nontender, no guarding, no rebound.- distended GENITOURINARY: Ojeda is in place. EXTREMITIES: Left BKA. Right extremity without edema. She has a well-healed scar in her first three toes. SKIN: Without signs of rash. She does have mitts in place. Peripheral IVs. NEUROLOGIC: She follows simple commands, answers questions, but she is not oriented to place or time. PSYCHIATRIC: Affect is somewhat flat. PICC line is clean General: Alert, No acute distress Heart: Regular rate, Normal S1, Normal S2 Lungs: Clear Abdomen: Normal bowel sounds Extremities: No edema, Normal pulses, Other (Left BKA) Skin: No rashes Labs LABS Laboratory Tests Test 02/21/20 20:54 02/21/20 23:47 02/22/20 00:00 02/22/20 00:40 Glucose (Fingerstick) 258 mg/dL (70-99) 257 mg/dL (70-99) O2 Saturation 91 % (92-99) Arterial Blood pH 7.45 (7.35-7.45) Arterial Blood pH (Temp corrected) 7.44 Arterial Blood pCO2 at Patient Temp 27 mmHg (35-46) Arterial Blood pCO2 (Temp correct) 28 mmHg Arterial Blood pO2 at Patient Temp 60 mmHg (75-108) Arterial Blood pO2 (Temp corrected) 63 mmHg Arterial Blood HCO3 18 mmol/L (21-28) Arterial Blood Base Excess -5 mmol/L (-3-3) FiO2 24 Sodium Level 138 mmol/L (136-145) Potassium Level 4.0 mmol/L (3.5-5.1) Chloride Level 104 mmol/L (98-107) Carbon Dioxide Level 22 mmol/L (21-32) Anion Gap 12 (6-14) Blood Urea Nitrogen 22 mg/dL (7-20) Creatinine 1.6 mg/dL (0.6-1.0) Estimated GFR (Cockcroft-Gault) 40.6 Glucose Level 257 mg/dL (70-99) Calcium Level 8.1 mg/dL (8.5-10.1) Test 02/22/20 06:06 02/22/20 07:45 02/22/20 11:52 Glucose (Fingerstick) 270 mg/dL (70-99) 226 mg/dL (70-99) Sodium Level 139 mmol/L (136-145) Potassium Level 3.7 mmol/L (3.5-5.1) Chloride Level 104 mmol/L (98-107) Carbon Dioxide Level 21 mmol/L (21-32) Anion Gap 14 (6-14) Blood Urea Nitrogen 20 mg/dL (7-20) Creatinine 1.6 mg/dL (0.6-1.0) Estimated GFR (Cockcroft-Gault) 40.6 Glucose Level 236 mg/dL (70-99) Calcium Level 7.8 mg/dL (8.5-10.1) Phosphorus Level 2.1 mg/dL (2.6-4.7) XO-Rpd-J-Type Natriuretic Peptide 7648 pg/mL (0-124) Review of Systems Review of Systems Denies pain, denies nausea, denies vomiting, denies fever. Assessment and Plan Assessmemt and Plan Problems Medical Problems: (1) DKA (diabetic ketoacidoses) Status: Acute (2) Fever Status: Acute (3) Leukocytosis Status: Acute (4) Nausea & vomiting Status: Acute (5) Person under investigation for COVID-19 Status: Acute (6) Sepsis Status: Acute Comment Review of Relevant I have reviewed the following items ely (where applicable) has been applied. Labs Laboratory Tests Test 02/20/20 17:49 02/20/20 18:29 02/20/20 19:41 02/20/20 20:59 Prothrombin Time 17.3 SEC (11.7-14.0) Prothromb Time International Ratio 1.5 (0.8-1.1) Activated Partial Thromboplast Time 37 SEC (24-38) Lactic Acid Level 3.3 mmol/L (0.4-2.0) Glucose (Fingerstick) 583 mg/dL (70-99) 504 mg/dL (70-99) 356 mg/dL (70-99) Test 02/20/20 22:17 02/20/20 22:25 02/20/20 22:30 02/20/20 23:28 Glucose (Fingerstick) 254 mg/dL (70-99) 216 mg/dL (70-99) Sodium Level 146 mmol/L (136-145) Potassium Level 3.2 mmol/L (3.5-5.1) Chloride Level 108 mmol/L (98-107) Carbon Dioxide Level 24 mmol/L (21-32) Anion Gap 14 (6-14) Blood Urea Nitrogen 37 mg/dL (7-20) Creatinine 2.5 mg/dL (0.6-1.0) Estimated GFR (Cockcroft-Gault) 24.3 Glucose Level 275 mg/dL (70-99) Lactic Acid Level 2.6 mmol/L (0.4-2.0) Calcium Level 7.9 mg/dL (8.5-10.1) Phosphorus Level 1.6 mg/dL (2.6-4.7) Magnesium Level 2.1 mg/dL (1.8-2.4) O2 Saturation 94 % (92-99) Arterial Blood pH 7.46 (7.35-7.45) Arterial Blood pH (Temp corrected) 7.45 Arterial Blood pCO2 at Patient Temp 29 mmHg (35-46) Arterial Blood pCO2 (Temp correct) 30 mmHg Arterial Blood pO2 at Patient Temp 72 mmHg (75-108) Arterial Blood pO2 (Temp corrected) 77 mmHg Arterial Blood HCO3 20 mmol/L (21-28) Arterial Blood Base Excess -3 mmol/L (-3-3) FiO2 21 Test 02/21/20 00:22 02/21/20 04:15 8/20/20 07:45 02/21/20 08:07 Glucose (Fingerstick) 191 mg/dL (70-99) 243 mg/dL (70-99) 275 mg/dL (70-99) White Blood Count 25.3 x10^3/uL (4.0-11.0) Red Blood Count 4.19 x10^6/uL (3.50-5.40) Hemoglobin 11.8 g/dL (12.0-15.5) Hematocrit 35.6 % (36.0-47.0) Mean Corpuscular Volume 85 fL (79-100) Mean Corpuscular Hemoglobin 28 pg (25-35) Mean Corpuscular Hemoglobin Concent 33 g/dL (31-37) Red Cell Distribution Width 14.3 % (11.5-14.5) Platelet Count 88 x10^3/uL (140-400) Neutrophils (%) (Auto) 83 % (31-73) Lymphocytes (%) (Auto) 11 % (24-48) Monocytes (%) (Auto) 6 % (0-9) Eosinophils (%) (Auto) 1 % (0-3) Basophils (%) (Auto) 0 % (0-3) Neutrophils # (Auto) 20.9 x10^3/uL (1.8-7.7) Lymphocytes # (Auto) 2.7 x10^3/uL (1.0-4.8) Monocytes # (Auto) 1.4 x10^3/uL (0.0-1.1) Eosinophils # (Auto) 0.2 x10^3/uL (0.0-0.7) Basophils # (Auto) 0.1 x10^3/uL (0.0-0.2) Sodium Level 140 mmol/L (136-145) Potassium Level 3.3 mmol/L (3.5-5.1) Chloride Level 104 mmol/L (98-107) Carbon Dioxide Level 23 mmol/L (21-32) Anion Gap 13 (6-14) Blood Urea Nitrogen 29 mg/dL (7-20) Creatinine 1.8 mg/dL (0.6-1.0) Estimated GFR (Cockcroft-Gault) 35.5 Glucose Level 242 mg/dL (70-99) Calcium Level 7.4 mg/dL (8.5-10.1) Phosphorus Level 2.0 mg/dL (2.6-4.7) Magnesium Level 1.8 mg/dL (1.8-2.4) Test 02/21/20 12:12 02/21/20 17:28 02/21/20 20:54 02/21/20 23:47 Glucose (Fingerstick) 162 mg/dL (70-99) 236 mg/dL (70-99) 258 mg/dL (70-99) 257 mg/dL (70-99) Test 02/22/20 00:00 02/22/20 00:40 02/22/20 06:06 02/22/20 07:45 O2 Saturation 91 % (92-99) Arterial Blood pH 7.45 (7.35-7.45) Arterial Blood pH (Temp corrected) 7.44 Arterial Blood pCO2 at Patient Temp 27 mmHg (35-46) Arterial Blood pCO2 (Temp correct) 28 mmHg Arterial Blood pO2 at Patient Temp 60 mmHg (75-108) Arterial Blood pO2 (Temp corrected) 63 mmHg Arterial Blood HCO3 18 mmol/L (21-28) Arterial Blood Base Excess -5 mmol/L (-3-3) FiO2 24 Sodium Level 138 mmol/L (136-145) 139 mmol/L (136-145) Potassium Level 4.0 mmol/L (3.5-5.1) 3.7 mmol/L (3.5-5.1) Chloride Level 104 mmol/L (98-107) 104 mmol/L (98-107) Carbon Dioxide Level 22 mmol/L (21-32) 21 mmol/L (21-32) Anion Gap 12 (6-14) 14 (6-14) Blood Urea Nitrogen 22 mg/dL (7-20) 20 mg/dL (7-20) Creatinine 1.6 mg/dL (0.6-1.0) 1.6 mg/dL (0.6-1.0) Estimated GFR (Cockcroft-Gault) 40.6 40.6 Glucose Level 257 mg/dL (70-99) 236 mg/dL (70-99) Calcium Level 8.1 mg/dL (8.5-10.1) 7.8 mg/dL (8.5-10.1) Glucose (Fingerstick) 270 mg/dL (70-99) Phosphorus Level 2.1 mg/dL (2.6-4.7) CM-Lkh-Q-Type Natriuretic Peptide 7648 pg/mL (0-124) Test 02/22/20 11:52 Glucose (Fingerstick) 226 mg/dL (70-99) Laboratory Tests Test 02/21/20 20:54 02/21/20 23:47 02/22/20 00:00 02/22/20 00:40 Glucose (Fingerstick) 258 mg/dL (70-99) 257 mg/dL (70-99) O2 Saturation 91 % (92-99) Arterial Blood pH 7.45 (7.35-7.45) Arterial Blood pH (Temp corrected) 7.44 Arterial Blood pCO2 at Patient Temp 27 mmHg (35-46) Arterial Blood pCO2 (Temp correct) 28 mmHg Arterial Blood pO2 at Patient Temp 60 mmHg (75-108) Arterial Blood pO2 (Temp corrected) 63 mmHg Arterial Blood HCO3 18 mmol/L (21-28) Arterial Blood Base Excess -5 mmol/L (-3-3) FiO2 24 Sodium Level 138 mmol/L (136-145) Potassium Level 4.0 mmol/L (3.5-5.1) Chloride Level 104 mmol/L (98-107) Carbon Dioxide Level 22 mmol/L (21-32) Anion Gap 12 (6-14) Blood Urea Nitrogen 22 mg/dL (7-20) Creatinine 1.6 mg/dL (0.6-1.0) Estimated GFR (Cockcroft-Gault) 40.6 Glucose Level 257 mg/dL (70-99) Calcium Level 8.1 mg/dL (8.5-10.1) Test 02/22/20 06:06 02/22/20 07:45 02/22/20 11:52 Glucose (Fingerstick) 270 mg/dL (70-99) 226 mg/dL (70-99) Sodium Level 139 mmol/L (136-145) Potassium Level 3.7 mmol/L (3.5-5.1) Chloride Level 104 mmol/L (98-107) Carbon Dioxide Level 21 mmol/L (21-32) Anion Gap 14 (6-14) Blood Urea Nitrogen 20 mg/dL (7-20) Creatinine 1.6 mg/dL (0.6-1.0) Estimated GFR (Cockcroft-Gault) 40.6 Glucose Level 236 mg/dL (70-99) Calcium Level 7.8 mg/dL (8.5-10.1) Phosphorus Level 2.1 mg/dL (2.6-4.7) OM-Iqa-U-Type Natriuretic Peptide 7648 pg/mL (0-124) Microbiology 02/20/20 Urine Culture - Preliminary, Resulted 02/20/20 Blood Culture - Preliminary, Resulted Medications Current Medications Sodium Chloride 1,000 ml @ 1,000 mls/hr 1X ONCE IV Last administered on 02/20/20at 16:51; Start 02/20/20 at 16:45; Stop 02/20/20 at 17:44; Status DC Sodium Chloride 1,000 ml @ 1,000 mls/hr 1X ONCE IV Last administered on 02/20/20at 16:53; Start 02/20/20 at 16:45; Stop 02/20/20 at 17:44; Status DC Acetaminophen (Tylenol) 1,000 mg 1X ONCE PO Last administered on 02/20/20at 17:44; Start 02/20/20 at 17:00; Stop 02/20/20 at 17:01; Status DC Ceftriaxone Sodium (Rocephin) 1 gm 1X ONCE IVP Last administered on 02/20/20at 17:45; Start 02/20/20 at 17:00; Stop 02/20/20 at 17:01; Status DC Sodium Chloride 1,000 ml @ 1,000 mls/hr 1X ONCE IV Last administered on 02/20/20at 18:07; Start 02/20/20 at 17:30; Stop 02/20/20 at 18:29; Status DC Sodium Chloride 1,000 ml @ 1,000 mls/hr Q1H IV ; Start 02/20/20 at 17:43; Stop 02/20/20 at 18:42; Status DC Insulin Human Regular 100 unit/ Sodium Chloride 101 ml @ 0 mls/hr CONT PRN PRN IV PER PROTOCOL Last administered on 02/20/20at 18:38; Start 02/20/20 at 17:45; Stop 02/22/20 at 12:52; Status DC Potassium Chloride/Water 100 ml @ 100 mls/hr PRN Q1HR PRN IV SEE COMMENTS Last administered on 02/21/20at 12:22; Start 02/20/20 at 17:45 Potassium Chloride/Water 100 ml @ 100 mls/hr PRN Q1HR PRN IV SEE COMMENTS Last administered on 02/21/20at 09:06; Start 02/20/20 at 17:45 Potassium Chloride/Water 100 ml @ 100 mls/hr PRN Q1HR PRN IV SEE COMMENTS; Start 02/20/20 at 17:45 Ondansetron HCl (Zofran) 4 mg PRN Q8HRS PRN IV NAUSEA/VOMITING; Start 02/20/20 at 20:45; Stop 02/21/20 at 20:44; Status DC Acetaminophen (Tylenol) 650 mg PRN Q4HRS PRN PO FEVER > 100.3'F; Start 02/20/20 at 20:45; Stop 02/21/20 at 20:44; Status DC Azithromycin 500 mg/Sodium Chloride 250 ml @ 250 mls/hr 1X ONCE IV Last administered on 02/20/20at 22:57; Start 02/20/20 at 21:30; Stop 02/20/20 at 22:29; Status DC Sodium Chloride 1,000 ml @ 500 mls/hr Q2HR IV Last administered on 02/20/20at 22:56; Start 02/20/20 at 22:00; Stop 02/21/20 at 00:08; Status DC Potassium Chloride/Water 100 ml @ 100 mls/hr Q1H IV Last administered on 02/21/20at 00:10; Start 02/20/20 at 22:00; Stop 02/20/20 at 23:59; Status DC Insulin Glargine (Lantus Syringe) 30 unit BID SQ Last administered on 02/22/20at 12:29; Start 02/21/20 at 00:15 Insulin Human Lispro (HumaLOG) 0-5 UNITS Q4HRS SQ Last administered on 02/21/20at 12:22; Start 02/21/20 at 00:15; Stop 02/21/20 at 17:06; Status DC Dextrose (Dextrose 50%-Water Syringe) 12.5 gm PRN Q15MIN PRN IV SEE COMMENTS; Start 02/21/20 at 00:00 Sodium Chloride 1,000 ml @ 500 mls/hr Q2H IV ; Start 02/21/20 at 00:00; Stop 02/21/20 at 04:26; Status DC Sodium Chloride 1,000 ml @ 500 mls/hr Q2H IV Last administered on 02/21/20 14:38; Start 02/21/20 at 04:30; Stop 02/21/20 at 17:42; Status DC Daptomycin 450 mg/ Sodium Chloride 50 ml @ 100 mls/hr QODAY IV Last admi nistered on 02/21/20 08:57; Start 02/21/20 at 09:00 Cefepime HCl (Maxipime) 1 gm Q12HR IVP Last administered on 02/22/20 08:52; Start 02/21/20 at 09:00 Potassium Chloride/Water 100 ml @ 100 mls/hr Q1H IV Last administered on 02/21/20 12:23; Start 02/21/20 at 10:00; Stop 02/21/20 at 11:59; Status DC Potassium Phosphate 15 mmol/ Sodium Chloride 255 ml @ 62.5 mls/hr 1X ONCE IV Last administered on 02/21/20at 13:11; Start 02/21/20 at 11:00; Stop 02/21/20 at 15:04; Status DC Heparin Sodium (Porcine) (Heparin Sodium) 5,000 unit Q8HRS SQ Last administered on 02/22/20 16:46; Start 02/21/20 at 14:00 Insulin Human Lispro (HumaLOG) 0-5 UNITS Q6HRS SQ Last administered on 02/22/20 12:26; Start 02/21/20 at 18:00 Sodium Chloride 1,000 ml @ 125 mls/hr Q8H IV Last administered on 02/22/20at 08:58; Start 02/22/20 at 01:00; Stop 02/22/20 at 10:42; Status DC Lorazepam (Ativan Inj) 1 mg PRN Q4HRS PRN IVP ANXIETY / AGITATION Last administered on 02/22/20 05:10; Start 02/22/20 at 01:00 Metoprolol Tartrate (Lopressor Vial) 5 mg PRN Q6HRS PRN IVP HYPERTENSION Last administered on 02/22/20 12:23; Start 02/22/20 at 11:45 Furosemide (Lasix) 40 mg 1X ONCE IVP Last administered on 02/22/20at 12:23; Start 02/22/20 at 12:00; Stop 02/22/20 at 12:01; Status DC Lactobacillus Rhamnosus (Culturelle) 1 cap BID PO ; Start 02/22/20 at 21:00 Active Scripts Active Reported Amlodipine Besylate 10 Mg Tablet 10 Mg PO DAILY Humalog (Insulin Lispro) 100 Unit/1 Ml Vial 10 Unit SQ TIDAC Lantus Solostar (Insulin Glargine,Hum.rec.anlog) 100 Unit/1 Ml Insuln.pen 60 Unit SQ QHS Vitals/I & O Vital Sign - Last 24 Hours 02/21/20 02/21/20 02/21/20 02/21/20 19:00 20:15 23:06 23:39 Temp 100.0 99.9 100.0 99.9 Pulse 142 141 140 Resp 20 24 B/P (MAP) 152/88 (109) 149/85 (106) 84/50 (61) Pulse Ox 95 93 94 O2 Delivery Room Air Room Air Room Air Nasal Cannula O2 Flow Rate 2.0 02/21/20 02/21/20 02/22/20 02/22/20 23:42 23:46 00:01 00:15 Pulse 153 150 146 145 Resp 40 40 26 22 B/P (MAP) 94/43 (60) 149/98 (115) 163/96 (118) 160/99 (119) Pulse Ox 93 93 94 96 O2 Delivery Nasal Cannula Nasal Cannula Nasal Cannula Nasal Cannula O2 Flow Rate 2.0 2.0 2.0 2.0 02/22/20 02/22/20 02/22/20 02/22/20 02:54 07:00 11:00 12:23 Temp 100.9 98.1 98.4 100.9 98.1 98.4 Pulse 144 145 139 139 Resp 23 20 20 B/P (MAP) 138/87 (104) 164/103 (123) 166/102 (123) 166/102 Pulse Ox 95 95 98 O2 Delivery Room Air Room Air Nasal Cannula O2 Flow Rate 2.0 02/22/20 15:00 Temp 98.8 98.8 Pulse 133 Resp 18 B/P (MAP) 148/91 (110) Pulse Ox 100 O2 Delivery Room Air O2 Flow Rate 2.0 Intake and Output 02/21/20 02/21/20 02/22/20 15:00 23:00 07:00 Intake Total 200 ml 2671 ml 620 ml Output Total 1100 ml 825 ml 500 ml Balance -900 ml 1846 ml 120 ml Justicifation of Admission Dx: Justifications for Admission: Justification of Admission Dx: Yes Sepsis: End-Organ Dysfunction KAMLA LANGSTON MD Feb 22, 2020 17:32
[2020-02-22] MEDS: LACTOBACILLUS RHAMNOSUS GG 1 CAPSULE. PO SCH (21:42)
[2020-02-23 03:00] VITALS: BP 142/86
[2020-02-23] MEDS: INSULIN LISPRO 300 UNITS/3 ML VIAL. SQ SCH ×4 (06:00→17:04)
[2020-02-23] MEDS: HEPARIN for SUB-Q USE 5,000 UNIT/ML VIAL. SQ SCH ×3 (06:37→21:06)
[2020-02-23 06:58] LABS: CALCIUM 8.6 mg/dL (8.5-10.1); CREATININE 1.5 mg/dL (0.6-1.0); GFR 43.8; PHOSPHORUS 2.5 mg/dL (2.6-4.7); POTASSIUM 3.1 mmol/L (3.5-5.1)
[2020-02-23 07:00] VITALS: BP 139/87
[2020-02-23 07:30] LABS: BASO # 0.1 x10^3/uL (0.0-0.2); BASO % 1 % (0-3); EOS # 0.2 x10^3/uL (0.0-0.7); EOS % 1 % (0-3); HEMATOCRIT 35.4 % (36.0-47.0); HEMOGLOBIN 11.8 g/dL (12.0-15.5); LYMPH # 2.8 x10^3/uL (1.0-4.8); LYMPH % 20 % (24-48); MEAN CORPUSCULAR HEMOGLOBIN 28 pg (25-35); MEAN CORPUSCULAR HGB CONC 33 g/dL (31-37); MEAN CORPUSCULAR VOLUME 84 fL (79-100); MONO # 1.5 x10^3/uL (0.0-1.1); MONO % 11 % (0-9); NEUT # 9.5 x10^3/uL (1.8-7.7); NEUT % 67 % (31-73); PLATELET COUNT 121 x10^3/uL (140-400); RED CELL DISTRIBUTION WIDTH 14.5 % (11.5-14.5); WHITE BLOOD COUNT 14.1 x10^3/uL (4.0-11.0)
--- NOTE | 2020-02-23 08:20 | PDOC ---
Infectious Disease Note Subjective Subjective Feels better. Denies F/C/S/N/V/D/SOA Vital Sign Vital Signs Vital Signs Date Time Temp Pulse Resp B/P (MAP) Pulse Ox O2 Delivery O2 Flow Rate FiO2 02/23/20 03:00 99.0 131 20 142/86 (104) 100 Room Air 99.0 02/22/20 20:20 2.0 Physical Exam PHYSICAL EXAM CONSTITUTIONAL: She is alert. She is cooperative. She is slow to respond to questions but better. She is in no acute distress. HEENT: Pupils equal and reactive. She has normal conjunctivae. Oral cavity, pharynx is clear. She is edentulous. NECK: Supple, no JVD. No nuchal rigidity. LUNGS: Crackles and on 02 HEART: S1, S2, mild tachycardic. ABDOMEN: Soft, nontender, no guarding, no rebound.- distended GENITOURINARY: Ojeda is in place. EXTREMITIES: Left BKA. Right extremity without edema. She has a well-healed scar in her first three toes. SKIN: Without signs of rash. She does have mitts in place. Peripheral IVs. NEUROLOGIC: She follows simple commands, answers questions, Oriented PSYCHIATRIC: Affect is somewhat flat. PICC line is clean Labs Lab Laboratory Tests Test 02/22/20 11:52 02/22/20 18:29 02/22/20 21:41 02/23/20 01:06 Glucose (Fingerstick) 226 mg/dL (70-99) 208 mg/dL (70-99) 142 mg/dL (70-99) 132 mg/dL (70-99) Test 02/23/20 06:28 02/23/20 06:30 Glucose (Fingerstick) 105 mg/dL (70-99) White Blood Count 14.1 x10^3/uL (4.0-11.0) Red Blood Count 4.20 x10^6/uL (3.50-5.40) Hemoglobin 11.8 g/dL (12.0-15.5) Hematocrit 35.4 % (36.0-47.0) Mean Corpuscular Volume 84 fL (79-100) Mean Corpuscular Hemoglobin 28 pg (25-35) Mean Corpuscular Hemoglobin Concent 33 g/dL (31-37) Red Cell Distribution Width 14.5 % (11.5-14.5) Platelet Count 121 x10^3/uL (140-400) Neutrophils (%) (Auto) 67 % (31-73) Lymphocytes (%) (Auto) 20 % (24-48) Monocytes (%) (Auto) 11 % (0-9) Eosinophils (%) (Auto) 1 % (0-3) Basophils (%) (Auto) 1 % (0-3) Neutrophils # (Auto) 9.5 x10^3/uL (1.8-7.7) Lymphocytes # (Auto) 2.8 x10^3/uL (1.0-4.8) Monocytes # (Auto) 1.5 x10^3/uL (0.0-1.1) Eosinophils # (Auto) 0.2 x10^3/uL (0.0-0.7) Basophils # (Auto) 0.1 x10^3/uL (0.0-0.2) Sodium Level 139 mmol/L (136-145) Potassium Level 3.1 mmol/L (3.5-5.1) Chloride Level 103 mmol/L (98-107) Carbon Dioxide Level 27 mmol/L (21-32) Anion Gap 9 (6-14) Blood Urea Nitrogen 18 mg/dL (7-20) Creatinine 1.5 mg/dL (0.6-1.0) Estimated GFR (Cockcroft-Gault) 43.8 Glucose Level 103 mg/dL (70-99) Calcium Level 8.6 mg/dL (8.5-10.1) Phosphorus Level 2.5 mg/dL (2.6-4.7) Micro ECHO 02/21 AORTIC VALVE The aortic valve is normal in structure and function. Doppler and Color Flow revealed no significant aortic regurgitation. There is no significant aortic valvular stenosis. MITRAL VALVE The mitral valve is normal in structure and function. There is no evidence of mitral valve prolapse. There is no mitral valve stenosis. Doppler and Color-flow revealed mild mitral regurgitation. TRICUSPID VALVE The tricuspid valve is normal in structure and function. Doppler and Color Flow revealed trace tricuspid regurgitation with a estimated PAP of 21 mmHg. There is no tricuspid valve stenosis. PULMONIC VALVE The pulmonic valve is not well visualized. Doppler and Color Flow revealed no pulmonic valvular regurgitation. CXR 821 IMPRESSION: New bibasilar airspace disease and small bilateral pleural effusions, greater on the left. Microbiology 02/20/20 Blood Culture - Preliminary, Resulted Objective Assessment Staph aureus sepsis 02/19 - MSSA Sepsis - POA Fever Leukocytosis -some better UTI - POA 02/19 Ecoli BEN Encephalopathy - slow resolution but better DKA PICC placed 02/20 Plan Plan of Care Repeat blood cults pending D/w micro and sensitivity will be available tomorrow Cont Daptomycin /Cefepime will adjust 02/23 based on Urine sensitivity F/u labs and cults Electrolytes per primary RAMA VARGAS MD Feb 23, 2020 08:20
[2020-02-23] MEDS: CEFEPIME HCL IV Push 1 GM VIAL. IVP SCH ×2 (09:42→21:34)
[2020-02-23] MEDS: LACTOBACILLUS RHAMNOSUS GG 1 CAPSULE. PO SCH ×2 (09:42→20:57)
[2020-02-23] MEDS: DAPTOmycin (GENERIC) IVPB 450 MG in IV NORMAL SALINE 50ML 50 ML IV SCH (09:42)
[2020-02-23] MEDS: INSULIN GLARGINE SYRINGE. SQ SCH ×2 (09:58→21:05)
[2020-02-23 11:00] VITALS: BP 137/83
[2020-02-23 15:00] VITALS: BP 131/86
[2020-02-23] MEDS: IV NORMAL SALINE 1000ML BAG 1,000 ML IV SCH (18:42)
[2020-02-23] MEDS ORDERED: ELECTROLYTE (NON-ICU) PROTOCOL MC PRN ×2 (18:45)
--- NOTE | 2020-02-23 18:56 | PDOC ---
GENERAL General: Patient examined chart reviewed today is hospital day 4 for this patient with longstanding uncontrolled diabetes and significant multi-morbidity from that including peripheral vascular disease and left below the knee amputation for nonhealing wounds. She was admitted with weakness, malaise, failure to thrive with severe sepsis manifesting as leukocytosis, tachycardia, and hypotension. She responded nicely to broad-spectrum antibiotics and was moved quickly out of the intensive care unit. She has been found to have a methicillin sensitive staph aureus bacteremia of unclear origin and pansensitive E. coli urinary tract infection. We appreciate infectious diseases support. She is improving daily. I have added intravenous fluids due to her tachycardia and she has not an oral electrolyte replacement protocol. Continue current management otherwise. Problems: (1) E. coli UTI (2) Type 2 diabetes mellitus (3) Bacteremia due to Staphylococcus aureus VITAL SIGNS Vital Signs/I&O: Vital Signs Date Time Temp Pulse Resp B/P (MAP) Pulse Ox O2 Delivery O2 Flow Rate FiO2 02/23/20 15:00 98.6 117 16 131/86 (101) 98 Room Air 98.6 02/22/20 20:20 2.0 I & O 02/22/20 02/22/20 02/23/20 15:00 23:00 07:00 Intake Total 100 ml 290 ml 1300 ml Output Total 1375 ml 2425 ml 1250 ml Balance -1275 ml -2135 ml 50 ml In general the patient is pleasant alert and oriented x3 in no acute distress HEENT exam is unremarkable Neck is soft and supple no adenopathy or thyromegaly noted Chest is clear to auscultation anteriorly Heart S1-S2 normal tachycardic no murmurs or gallops are noted Abdomen soft nontender nondistended no masses organomegaly noted Extremity exam is notable for left below the knee amputation. She has no obvio us skin findings on exam ALLERGIES Allergies: Allergies Coded Allergies Type Severity Reaction Last Updated Verified No Known Drug Allergies 02/21/20 No MEDS Medications: Current Medications Medications (Trade) Dose Ordered Sig/Irwin Start Time Stop Time Status Last Admin Dose Admin Acetaminophen (Tylenol) 650 mg PRN Q4HRS PRN 02/20/20 20:45 02/21/20 20:44 DC Azithromycin 500 mg/Sodium Chloride 250 ml @ 250 mls/hr 1X ONCE 02/20/20 21:30 02/20/20 22:29 DC 02/20/20 22:57 Cefepime HCl (Maxipime) 1 gm Q12HR 02/21/20 09:00 02/23/20 09:42 Ceftriaxone Sodium (Rocephin) 1 gm 1X ONCE 02/20/20 17:00 02/20/20 17:01 DC 02/20/20 17:45 Daptomycin 450 mg/ Sodium Chloride 50 ml @ 100 mls/hr QODAY 02/21/20 09:00 02/23/20 09:42 Dextrose (Dextrose 50%-Water Syringe) 12.5 gm PRN Q15MIN PRN 02/21/20 00:00 Furosemide (Lasix) 40 mg 1X ONCE 02/22/20 12:00 02/22/20 12:01 DC 02/22/20 12:23 Heparin Sodium (Porcine) (Heparin Sodium) 5,000 unit Q8HRS 02/21/20 14:00 02/23/20 14:32 Info (Non-Icu Electrolyte Protocol) 1 ea CONT PRN PRN 02/23/20 18:45 UNV Insulin Glargine (Lantus Syringe) 30 unit BID 02/21/20 00:15 02/23/20 09:58 Insulin Human Lispro (HumaLOG) 0-5 UNITS Q6HRS 02/21/20 18:00 02/23/20 12:12 Insulin Human Regular 100 unit/ Sodium Chloride 101 ml @ 0 mls/hr CONT PRN PRN 02/20/20 17:45 02/22/20 12:52 DC 02/20/20 18:38 Lactobacillus Rhamnosus (Culturelle) 1 cap BID 02/22/20 21:00 02/23/20 09:42 Lorazepam (Ativan Inj) 1 mg PRN Q4HRS PRN 02/22/20 01:00 02/22/20 05:10 Metoprolol Tartrate (Lopressor Vial) 5 mg PRN Q6HRS PRN 02/22/20 11:45 02/22/20 12:23 Ondansetron HCl (Zofran) 4 mg PRN Q8HRS PRN 02/20/20 20:45 02/21/20 20:44 DC Potassium Chloride/Water 100 ml @ 100 mls/hr Q1H 02/21/20 10:00 02/21/20 11:59 DC 02/21/20 12:23 Potassium Phosphate 15 mmol/ Sodium Chloride 255 ml @ 62.5 mls/hr 1X ONCE 02/21/20 11:00 02/21/20 15:04 DC 02/21/20 13:11 Sodium Chloride 1,000 ml @ 100 mls/hr Q10H 02/23/20 18:42 UNV Current Medications Medications (Trade) Dose Ordered Sig/Irwin Route PRN Reason Start Time Stop Time Status Last Admin Dose Admin Lactobacillus Rhamnosus (Culturelle) 1 cap BID PO 02/22/20 21:00 02/23/20 09:42 LAB Lab: Laboratory Tests Test 02/22/20 21:41 02/23/20 01:06 02/23/20 06:28 02/23/20 06:30 Glucose (Fingerstick) 142 mg/dL (70-99) H 132 mg/dL (70-99) H 105 mg/dL (70-99) H White Blood Count 14.1 x10^3/uL (4.0-11.0) H Red Blood Count 4.20 x10^6/uL (3.50-5.40) Hemoglobin 11.8 g/dL (12.0-15.5) L Hematocrit 35.4 % (36.0-47.0) L Mean Corpuscular Volume 84 fL (79-100) Mean Corpuscular Hemoglobin 28 pg (25-35) Mean Corpuscular Hemoglobin Concent 33 g/dL (31-37) Red Cell Distribution Width 14.5 % (11.5-14.5) Platelet Count 121 x10^3/uL (140-400) L Neutrophils (%) (Auto) 67 % (31-73) Lymphocytes (%) (Auto) 20 % (24-48) L Monocytes (%) (Auto) 11 % (0-9) H Eosinophils (%) (Auto) 1 % (0-3) Basophils (%) (Auto) 1 % (0-3) Neutrophils # (Auto) 9.5 x10^3/uL (1.8-7.7) H Lymphocytes # (Auto) 2.8 x10^3/uL (1.0-4.8) Monocytes # (Auto) 1.5 x10^3/uL (0.0-1.1) H Eosinophils # (Auto) 0.2 x10^3/uL (0.0-0.7) Basophils # (Auto) 0.1 x10^3/uL (0.0-0.2) Sodium Level 139 mmol/L (136-145) Potassium Level 3.1 mmol/L (3.5-5.1) L Chloride Level 103 mmol/L (98-107) Carbon Dioxide Level 27 mmol/L (21-32) Anion Gap 9 (6-14) Blood Urea Nitrogen 18 mg/dL (7-20) Creatinine 1.5 mg/dL (0.6-1.0) H Estimated GFR (Cockcroft-Gault) 43.8 Glucose Level 103 mg/dL (70-99) H Calcium Level 8.6 mg/dL (8.5-10.1) Phosphorus Level 2.5 mg/dL (2.6-4.7) L Test 02/23/20 11:24 02/23/20 17:01 Glucose (Fingerstick) 165 mg/dL (70-99) H 117 mg/dL (70-99) H Laboratory Tests 02/23/20 06:30 Laboratory Tests 02/23/20 06:30 IMAGING Imaging: PATIENT: YO MOSES ACCOUNT: [id number] : 1965 LOCATION: [address] [place] [address] AGE: 54 SEX: F EXAM STATUS: ADM IN ORD. PHYSICIAN: RAMA VARGAS MD REASON: SOA PROCEDURE: CHEST AP ONLY EXAMINATION: CHEST AP ONLY CLINICAL HISTORY: Reason: SOA / Spl. Instructions: / History: EXAM DATE/TIME: 02/22/2020 10:35 AM COMPARISON: 02/20/2020 FINDINGS: Lines, tubes, and devices: None. Cardiomediastinal silhouette: Normal heart size. Aortic atherosclerotic calcification. Lungs and pleura: Mild bibasilar opacities and small bilateral pleural effusions, greater on the left. Pulmonary vasculature unremarkable. Bones and soft tissues: Regional osseous structures unchanged. IMPRESSION: New bibasilar airspace disease and small bilateral pleural effusions, greater on the left. Electronically signed by: Brady Carcamo DO (02/22/2020 3:25 PM) [id number] DICTATED and SIGNED BY: BRADY CARCAMO DO DATE: 02/22/20 1525 ASSESSMENT & PLAN A&P Plan as noted above This note was created using [employer] and may have omissions and/or errors due to the nature of real-time voice flavor tank tender. Justicifation of Admission Dx: Justifications for Admission: Justification of Admission Dx: Yes Sepsis: End-Organ Dysfunction VIKA XAVIER MD Feb 23, 2020 18:56
[2020-02-23 19:00] VITALS: BP 142/87
[2020-02-23] MEDS ORDERED: DEXTROSE 50% 25 GM / 50ML DISP.SYRIN. IV PRN (19:15)
[2020-02-23] MEDS ORDERED: POTASSIUM CHLORIDE 10MEQ 100 ML IV ONE (19:15)
[2020-02-23] MEDS ORDERED: POTASSIUM CHLORIDE 20 MEQ TABLET.ER. PO ONE (19:15)
[2020-02-23 23:00] VITALS: BP 151/92
[2020-02-24] MEDS: METOPROLOL TARTRATE 5 MG/5 ML VIAL. IVP PRN (00:14)
[2020-02-24] MEDS: IV NORMAL SALINE 1000ML BAG 1,000 ML IV SCH (00:14)
[2020-02-24] MEDS: traMADol 50 MG TABLET PO PRN ×3 (01:57→19:19)
[2020-02-24 03:00] VITALS: BP 148/90
[2020-02-24] MEDS: HEPARIN for SUB-Q USE 5,000 UNIT/ML VIAL. SQ SCH ×3 (06:00→21:30)
[2020-02-24 07:00] VITALS: BP 132/90
[2020-02-24] MEDS: INSULIN LISPRO 300 UNITS/3 ML VIAL. SQ SCH ×3 (07:13→16:18)
--- NOTE | 2020-02-24 07:45 | PDOC ---
Infectious Disease Note Subjective Subjective Feels better. Denies F/C/S/N/V/D/SOA Vital Sign Vital Signs Vital Signs Date Time Temp Pulse Resp B/P (MAP) Pulse Ox O2 Delivery O2 Flow Rate FiO2 02/24/20 03:00 98.6 117 20 148/90 (109) 96 Room Air 98.6 02/23/20 23:00 2.0 Physical Exam PHYSICAL EXAM CONSTITUTIONAL: She is alert. She is cooperative. She is better. She is in no acute distress. HEENT: Pupils equal and reactive. She has normal conjunctivae. Oral cavity, pharynx is clear. She is edentulous. NECK: Supple, no JVD. No nuchal rigidity. LUNGS: Crackles and on HEART: S1, S2, mild tachycardic. ABDOMEN: Soft, nontender, no guarding, no rebound.- distended GENITOURINARY: Ojeda is in place. EXTREMITIES: Left BKA. Right extremity without edema. She has a well-healed scar in her first three toes. SKIN: Without signs of rash. She does have mitts in place. Peripheral IVs. NEUROLOGIC: nonfocal, answers questions, Oriented PSYCHIATRIC: Appropriate PICC line is clean Labs Lab Laboratory Tests Test 02/23/20 11:24 02/23/20 17:01 02/23/20 20:43 02/24/20 07:05 Glucose (Fingerstick) 165 mg/dL (70-99) 117 mg/dL (70-99) 185 mg/dL (70-99) 67 mg/dL (70-99) Test 02/24/20 07:30 Glucose (Fingerstick) 74 mg/dL (70-99) Micro ECHO 02/21 AORTIC VALVE The aortic valve is normal in structure and function. Doppler and Color Flow revealed no significant aortic regurgitation. There is no significant aortic valvular stenosis. MITRAL VALVE The mitral valve is normal in structure and function. There is no evidence of mitral valve prolapse. There is no mitral valve stenosis. Doppler and Color-flow revealed mild mitral regurgitation. TRICUSPID VALVE The tricuspid valve is normal in structure and function. Doppler and Color Flow revealed trace tricuspid regurgitation with a estimated PAP of 21 mmHg. There is no tricuspid valve stenosis. PULMONIC VALVE The pulmonic valve is not well visualized. Doppler and Color Flow revealed no pulmonic valvular regurgitation. CXR 821 IMPRESSION: New bibasilar airspace disease and small bilateral pleural effusions, greater on the left. Microbiology 02/20/20 Blood Culture - Preliminary, Resulted Objective Assessment Staph aureus sepsis 02/19 - MSSA Sepsis - POA Fever Leukocytosis -some better UTI - POA 02/19 Ecoli BEN Encephalopathy - slow resolution but better DKA PICC placed 02/20 Plan Plan of Care Repeat blood cults pending D/w micro and sensitivity will be available tomorrow DIscont Daptomycin /Cefepime begin Cefazolin F/u labs and cults Electrolytes per primary RAMA VARGAS MD Feb 24, 2020 07:45
[2020-02-24] MEDS: LACTOBACILLUS RHAMNOSUS GG 1 CAPSULE. PO SCH ×2 (08:26→21:16)
[2020-02-24 08:34] LABS: BASO # 0.1 x10^3/uL (0.0-0.2); BASO % 1 % (0-3); EOS # 0.4 x10^3/uL (0.0-0.7); EOS % 4 % (0-3); HEMATOCRIT 34.7 % (36.0-47.0); HEMOGLOBIN 11.8 g/dL (12.0-15.5); LYMPH # 2.5 x10^3/uL (1.0-4.8); LYMPH % 21 % (24-48); MEAN CORPUSCULAR HEMOGLOBIN 29 pg (25-35); MEAN CORPUSCULAR HGB CONC 34 g/dL (31-37); MEAN CORPUSCULAR VOLUME 85 fL (79-100); MONO # 1.6 x10^3/uL (0.0-1.1); MONO % 14 % (0-9); NEUT # 7.4 x10^3/uL (1.8-7.7); NEUT % 62 % (31-73); PLATELET COUNT 152 x10^3/uL (140-400); RED BLOOD COUNT 4.11 x10^6/uL (3.50-5.40); RED CELL DISTRIBUTION WIDTH 14.6 % (11.5-14.5)
--- NOTE | 2020-02-24 08:34 | PDOC ---
[employer] PROGRESS NOTE Date of Service DOS: DATE: 02/24/20 TIME: 08:29 Chief Complaint Chief Complaint DKA - BG improved MSSA bacteremia - PICC placed 02/20, changed to cefazolin. ID on case Sepsis - POA UTI - POA 02/19 Ecoli BEN - likely vasomotor nephropathy - hold fluids for severely reduced EF and e levated BNP and O2 requirements Acute hypoxia - likely related to mild fluid overload in DKA with CHF underlying, will wean as tolerated Acute metabolic Encephalopathy - slow resolution but better Severely reduced EF CHF 20-25% - cardiology consulted. H/o CVA - with memory deficits, 24/01 caregiver Back pain - patient notes is chronic, lidoderm patch ordered FEN - ADA cardiac diet, would restrict fluid to 1.5L per day PPX - heparin FULL CODE Dispo - cont inpatient History of Present Illness History of Present Illness Ms Ariza is a 54-year-old female w/ PMHx diabetes, HTN, prior CVA, s/p L BKA and right foot partial toe amputations admitted to [facility] on the evening of 02/19 with complaints of nausea and vomiting starting the day before. She is uncertain where she is and is overall a poor historian, knows her caregiver's name, but otherwise has little insight into her medical history. She was found in DKA and initially admitted to ICU. Seen by ID for MSSA bacteremia found on cultures from admission. Initially started on treatment with cefepime and daptomycin. 02/21: Echo: The left ventricle is normal size. The systolic function is severely impaired. The Ejection Fraction is 20-25%. There is severe global hypokinesis of the left ventricle. There is mild concentric left ventricular hypertrophy. Doppler and Color Flow revealed no significant aortic regurgitation. There is no significant aortic valvular stenosis. Doppler and Color-flow revealed mild mitral regurgitation. Doppler and Color Flow revealed trace tricuspid regurgitation with a estimated PAP of 21 mmHg. Afebrile. C/o lower back pain, notes it is chronic. She forgets why she is here, does not recall diagnosis of bacteremia. Changed to cefazolin for MSSA per ID. PICC in place. Vitals/I&O Vitals/I&O: Vital Signs Date Time Temp Pulse Resp B/P (MAP) Pulse Ox O2 Delivery O2 Flow Rate FiO2 02/24/20 08:26 Room Air 02/24/20 07:00 98.3 120 18 132/90 (104) 98 2.0 98.3 I & O 02/23/20 02/23/20 02/24/20 15:00 23:00 07:00 Intake Total 480 ml 600 ml 200 ml Output Total 300 ml 200 ml Balance 480 ml 300 ml 0 ml Physical Exam Physical Exam: CONSTITUTIONAL: She is alert. She is cooperative. She is better. She is in no acute distress. HEENT: Pupils equal and reactive. She has normal conjunctivae. Oral cavity, pharynx is clear. She is edentulous. NECK: Supple, no JVD. No nuchal rigidity. LUNGS: Crackles and on 02 HEART: S1, S2, mild tachycardic. ABDOMEN: Soft, nontender, no guarding, no rebound.- distended GENITOURINARY: Ojeda is in place. EXTREMITIES: Left BKA. Right extremity without edema. She has a well-healed scar in her first three toes. SKIN: Without signs of rash. She does have mitts in place. Peripheral IVs. NEUROLOGIC: nonfocal, answers questions, Oriented PSYCHIATRIC: Appropriate PICC line is clean General: Alert, No acute distress Heart: Regular rate, Normal S1, Normal S2 Lungs: Clear Abdomen: Normal bowel sounds Extremities: No edema, Normal pulses, Other (Left BKA) Skin: No rashes Labs Labs: Laboratory Tests Test 02/23/20 11:24 02/23/20 17:01 02/23/20 20:43 02/24/20 07:05 Glucose (Fingerstick) 165 mg/dL (70-99) 117 mg/dL (70-99) 185 mg/dL (70-99) 67 mg/dL (70-99) Test 02/24/20 07:30 Glucose (Fingerstick) 74 mg/dL (70-99) Assessment and Plan Assessmemt and Plan Problems Medical Problems: (1) DKA (diabetic ketoacidoses) Status: Acute (2) Fever Status: Acute (3) Leukocytosis Status: Acute (4) Nausea & vomiting Status: Acute (5) Person under investigation for COVID-19 Status: Acute (6) Sepsis Status: Acute Comment Review of Relevant I have reviewed the following items ely (where applicable) has been applied. Medications: Current Medications Medications (Trade) Dose Ordered Sig/Irwin Route PRN Reason Start Time Stop Time Status Last Admin Dose Admin Sodium Chloride 1,000 ml @ 100 mls/hr Q10H IV 02/23/20 18:42 02/24/20 00:14 Potassium Chloride/Water 100 ml @ 100 mls/hr 1X ONCE IV 02/23/20 19:15 02/23/20 20:14 DC 02/23/20 19:15 Potassium Chloride (Klor-Con) 40 meq 1X ONCE PO 02/23/20 19:15 02/23/20 19:18 DC 02/23/20 20:56 Tramadol HCl (Ultram) 50 mg PRN Q6HRS PRN PO PAIN 02/24/20 01:45 02/24/20 08:26 Justicifation of Admission Dx: Justifications for Admission: Justification of Admission Dx: Yes Sepsis: End-Organ Dysfunction JENNIFER KNUTSON MD Feb 24, 2020 08:34
[2020-02-24 09:05] LABS: ALBUMIN 2.3 g/dL (3.4-5.0); ALBUMIN/GLOBULIN RATIO 0.5 (1.0-1.7); CALCIUM 8.8 mg/dL (8.5-10.1); CREATININE 1.5 mg/dL (0.6-1.0); GFR 43.8; POTASSIUM 3.9 mmol/L (3.5-5.1); TOTAL BILIRUBIN 0.4 mg/dL (0.2-1.0); TOTAL PROTEIN 7.1 g/dL (6.4-8.2)
[2020-02-24 10:44] VITALS: BP 147/93
[2020-02-24] MEDS: LIDOCAINE (700MG/PATCH) PATCH. TD SCH (11:06)
[2020-02-24] MEDS ORDERED: ceFAZolin SODIUM IV Push 1 GM VIAL. IVP SCH (14:00)
[2020-02-24 15:00] VITALS: BP 128/74
[2020-02-24 19:00] VITALS: BP 151/99
[2020-02-24] MEDS: PATCH REMOVAL. MC SCH (21:00)
[2020-02-24] MEDS: INSULIN GLARGINE SYRINGE. SQ SCH (21:30)
[2020-02-24 23:00] VITALS: BP 156/98
[2020-02-25 03:00] VITALS: BP 153/95
[2020-02-25] MEDS: HEPARIN for SUB-Q USE 5,000 UNIT/ML VIAL. SQ SCH ×3 (05:48→21:52)
[2020-02-25 07:00] VITALS: BP 149/93
[2020-02-25] MEDS: INSULIN LISPRO 300 UNITS/3 ML VIAL. SQ SCH ×3 (07:24→18:41)
[2020-02-25] MEDS: LIDOCAINE (700MG/PATCH) PATCH. TD SCH (09:00)
[2020-02-25] MEDS: LACTOBACILLUS RHAMNOSUS GG 1 CAPSULE. PO SCH ×2 (09:06→21:43)
[2020-02-25] MEDS: traMADol 50 MG TABLET PO PRN (09:10)
--- NOTE | 2020-02-25 10:05 | PDOC ---
Infectious Disease Note Subjective Subjective Feels better. Denies F/C/S/N/V/D/SOA Vital Sign Vital Signs Vital Signs Date Time Temp Pulse Resp B/P (MAP) Pulse Ox O2 Delivery O2 Flow Rate FiO2 02/25/20 09:10 18 97 Room Air 02/25/20 07:00 97.9 122 149/93 (111) 97.9 02/24/20 07:00 2.0 Physical Exam PHYSICAL EXAM CONSTITUTIONAL: She is alert. She is cooperative. She is better. She is in no acute distress. HEENT: Pupils equal and reactive. She has normal conjunctivae. Oral cavity, pharynx is clear. She is edentulous. NECK: Supple, no JVD. No nuchal rigidity. LUNGS: Crackles and on 02 HEART: S1, S2, mild tachycardic. ABDOMEN: Soft, nontender, no guarding, no rebound.- distended GENITOURINARY: Ojeda is in place. EXTREMITIES: Left BKA. Right extremity without edema. She has a well-healed scar in her first three toes. SKIN: Without signs of rash. She does have mitts in place. Peripheral IVs. NEUROLOGIC: nonfocal, answers questions, Oriented PSYCHIATRIC: Appropriate PICC line is clean Labs Lab Laboratory Tests Test 02/24/20 10:57 02/24/20 16:11 02/24/20 21:10 02/25/20 07:16 Glucose (Fingerstick) 148 mg/dL (70-99) 142 mg/dL (70-99) 212 mg/dL (70-99) 142 mg/dL (70-99) Micro Microbiology 02/23/20 Blood Culture - Preliminary, Resulted NO GROWTH AFTER 2 DAYS 02/20/20 Urine Culture - Final, Complete 02/20/20 Antimicrobic Susceptibility - Final, Complete Objective Assessment Staph aureus sepsis 02/19 - MSSA,,,, 02/22 neg Sepsis - POA Fever Leukocytosis -some better UTI - POA 02/19 Ecoli BEN Encephalopathy - slow resolution but better DKA PICC placed 02/20 Plan Plan of Care picc Repeat blood cults pending Cefazolin F/u labs and cults Electrolytes per primary ss to arrange for home antibiotics DANNY SNEED MD Feb 25, 2020 10:05
[2020-02-25 10:46] VITALS: BP 144/69
--- NOTE | 2020-02-25 10:57 | NUR ---
SW following. Discussed with RN and Dr. Mcghee, pt currently on IV cefazolin, repeat blood cultures pending. Pt will need senior living IV abx, picc line ordered. AXEL to meet with pt to discuss. AXEL will continue to follow. COVID-19 negative. Addendum: 02/25/20 at 1301 by FERNY REYNA AXEL met with pt (no isolation precautions at the time), pt agreeable to home infusion, does not have a preference of provider. Pt gave permission for [facility]EL to fax clinicals to [facility] to check benefits. AXEL faxed facesheet to [facility], awaiting benefits.
--- NOTE | 2020-02-25 11:35 | PDOC2 ---
LEONOR KRISHNAMURTHY [employer] PRINC[employer]AL 02/25/20 1135: CARDIAC CONSULT DATE OF CONSULT Date of Consult DATE: 02/25/20 TIME: 11:22 REASON FOR CONSULT Reason for Consult: Diminished LVEF REFERRING PHYSICIAN Referring Physician: Dr. Cedillo SOURCE Source: Chart review, Patient HISTORY OF PRESENT ILLNESS HISTORY OF PRESENT ILLNESS This is a 54 yo female who presented secondary to nausea/vomiting and hyperglycemia. Was noted in DKA. Also noted with fevers, leukocytosis, and sepsis. Blood cultures with MSSA bacteremia. Echo obtain and was noted with significantly diminished LV systolic function, which prompted this consult. No known prior h/o of CHF, CAD. Denies any chest pain, palpitations, dizziness, SOA, or diaphoresis. Nausea/vomiting has improved. PAST MEDICAL HISTORY Cardiovascular: HTN CENTRAL NERVOUS SYSTEM: CVA Endocrine: Diabetes PAST SURGICAL HISTORY Past Surgical History: Other (left BKA and right foot one-three toes) FAMILY HISTORY Family History: Heart Disease (mother ) SOCIAL HISTORY Smoke: <1 pack per day ALCOHOL: none Drugs: Marijuana Lives: Friends (significant other) CURRENT MEDICATIONS CURRENT MEDICATIONS Current Medications Medications (Trade) Dose Ordered Sig/Irwin Route PRN Reason Start Time Stop Time Status Last Admin Dose Admin Insulin Glargine (Lantus Syringe) 30 unit QHS SQ 02/24/20 21:00 02/24/20 21:30 Cefazolin Sodium/ Dextrose 50 ml @ 100 mls/hr Q8HRS IV 02/24/20 14:00 02/25/20 05:43 Miscellaneous (Lidoderm Patch Removal) 1 ea QHS MC 02/24/20 21:00 02/24/20 21:00 ALLERGIES ALLERGIES: Coded Allergies: lisinopril (Verified Allergy, Intermediate, 02/23/20) ROS Review of System 14 point ROS conducted with pertinent positives noted above in hPI PHYSICAL EXAM General: Alert, Oriented X3, Cooperative, No acute distress HEENT: Atraumatic, Mucous membr. moist/pink Lungs: Clear to auscultation Heart: Regular rate, Normal S1, Normal S2 Abdomen: Soft, No tenderness Extremities: No edema, Other (left BKA ) Skin: No significant lesion Neuro: Normal speech, Sensation intact Psych/Mental Status: Mental status NL, Other (flat affect ) MUSCULOSKELETAL: Osteoarthritic changes both hands VITALS/I&O VITALS/I&O: Vital Signs Date Time Temp Pulse Resp B/P (MAP) Pulse Ox O2 Delivery O2 Flow Rate FiO2 02/25/20 10:46 97.8 119 18 144/69 (94) 98 Room Air 97.8 02/24/20 07:00 2.0 I & O 02/24/20 02/24/20 02/25/20 15:00 23:00 07:00 Intake Total 600 ml 500 ml 300 ml Output Total 700 ml 1350 ml Balance -100 ml 500 ml -1050 ml LABS Lab: Laboratory Tests Test 02/24/20 16:11 02/24/20 21:10 02/25/20 07:16 02/25/20 11:00 Glucose (Fingerstick) 142 mg/dL (70-99) H 212 mg/dL (70-99) H 142 mg/dL (70-99) H 126 mg/dL (70-99) H ECHOCARDIOGRAM ECHOCARDIOGRAM <Conclusion> The left ventricle is normal size. The systolic function is severely impaired. The Ejection Fraction is 20-25%. There is severe global hypokinesis of the left ventricle. There is mild concentric left ventricular hypertrophy. Doppler and Color Flow revealed no significant aortic regurgitation. There is no significant aortic valvular stenosis. Doppler and Color-flow revealed mild mitral regurgitation. Doppler and Color Flow revealed trace tricuspid regurgitation with a estimated PAP of 21 mmHg. DATE: 02/22/20 1501 ASSESSMENT/PLAN ASSESSMENT/PLAN 1. Nausea/vomiting, 2ncephalopathy 2. Diabetes, II 3. DKA 4. Leukocytosis, fevers, sepsis/bacteremia. BC with MSSA 5. BEN; improved 6. UTI 7. Cardiomyopthy; Echo with LVEF 20-25%. New finding. No prior CV workup 8. Hypertension; mildly elevated 9. Tobaccoism; discussed/encouraged cessation 10. Marijuana use Recommendations Ongoing antibiotic therapy for treatment of UTI, sepsis, bacteremia Will need further ischemic evaluation to rule out ICM. Most probably on an outpatient basis when sepsis resolved Add BB therapy Allergy to ACEi Supportive care KAROLYN PADILLA MD 02/25/202: CARDIAC CONSULT ASSESSMENT/PLAN ASSESSMENT/PLAN The patient was seen and interviewed as well as examined at the bedside. The chart was reviewed. The case was discussed. Agree with the plan of care. LEONOR KRISHNAMURTHY APRN Feb 25, 2020 11:35 KAROLYN PADILLA MD Feb 25, 2020 18:12
--- NOTE | 2020-02-25 11:55 | PDOC ---
[employer] PROGRESS NOTE Date of Service DOS: DATE: 02/25/20 TIME: 11:53 Chief Complaint Chief Complaint DKA MSSA bacteremia Sepsis UTI BEN Acute hypoxia Acute metabolic Encephalopathy Severely reduced EF CHF 20-25% H/o CVA Back pain History of Present Illness History of Present Illness 02/25/2020 Patient seen and examined Chart reviewed Discussed with RN She is on IV cefazolin Discussed with disease case manager rn Ms Ariza is a 54-year-old female w/ PMHx diabetes, HTN, prior CVA, s/p L BKA and right foot partial toe amputations admitted to [facility] on the evening of 02/19 with complaints of nausea and vomiting starting the day before. She is uncertain where she is and is overall a poor historian, knows her caregiver's name, but otherwise has little insight into her medical history. She was found in DKA and initially admitted to ICU. Seen by ID for MSSA bacteremia found on cultures from admission. Initially started on treatment with cefepime and daptomycin. 02/21: Echo: The left ventricle is normal size. The systolic function is severely impaired. The Ejection Fraction is 20-25%. There is severe global hypokinesis of the left ventricle. There is mild concentric left ventricular hypertrophy. Doppler and Color Flow revealed no significant aortic regurgitation. There is no significant aortic valvular stenosis. Doppler and Color-flow revealed mild mitral regurgitation. Doppler and Color Flow revealed trace tricuspid regurgitation with a estimated PAP of 21 mmHg. Afebrile. C/o lower back pain, notes it is chronic. She forgets why she is here, does not recall diagnosis of bacteremia. Changed to cefazolin for MSSA per ID. PICC in place. Vitals/I&O Vitals/I&O: Vital Signs Date Time Temp Pulse Resp B/P (MAP) Pulse Ox O2 Delivery O2 Flow Rate FiO2 02/25/20 10:46 97.8 119 18 144/69 (94) 98 Room Air 97.8 02/24/20 07:00 2.0 I & O 02/24/20 02/24/20 02/25/20 15:00 23:00 07:00 Intake Total 600 ml 500 ml 300 ml Output Total 700 ml 1350 ml Balance -100 ml 500 ml -1050 ml Physical Exam Physical Exam: CONSTITUTIONAL: She is alert. She is cooperative. She is better. She is in no acute distress. HEENT: Pupils equal and reactive. She has normal conjunctivae. Oral cavity, pharynx is clear. She is edentulous. NECK: Supple, no JVD. No nuchal rigidity. LUNGS: Crackles and on HEART: S1, S2, mild tachycardic. ABDOMEN: Soft, nontender, no guarding, no rebound.- distended GENITOURINARY: Ojeda is in place. EXTREMITIES: Left BKA. Right extremity without edema. She has a well-healed scar in her first three toes. SKIN: Without signs of rash. She does have mitts in place. Peripheral IVs. NEUROLOGIC: nonfocal, answers questions, Oriented PSYCHIATRIC: Appropriate PICC line is clean General: Alert, No acute distress Heart: Regular rate, Normal S1, Normal S2 Lungs: Clear Abdomen: Normal bowel sounds Extremities: No edema, Normal pulses, Other (Left BKA) Skin: No rashes Labs Labs: Laboratory Tests Test 02/24/20 16:11 02/24/20 21:10 02/25/20 07:16 02/25/20 11:00 Glucose (Fingerstick) 142 mg/dL (70-99) 212 mg/dL (70-99) 142 mg/dL (70-99) 126 mg/dL (70-99) Assessment and Plan Assessmemt and Plan Problems Medical Problems: (1) DKA (diabetic ketoacidoses) Status: Acute (2) Fever Status: Acute (3) Leukocytosis Status: Acute (4) Nausea & vomiting Status: Acute (5) Person under investigation for COVID-19 Status: Acute (6) Sepsis Status: Acute DKA - BG improved MSSA bacteremia - PICC placed 02/20, changed to cefazolin. ID on case Sepsis - POA UTI - POA 02/19 Ecoli BEN - likely vasomotor nephropathy - hold fluids for severely reduced EF and elevated BNP and O2 requirements Acute hypoxia - likely related to mild fluid overload in DKA with CHF underlying, will wean as tolerated Acute metabolic Encephalopathy - slow resolution but better Severely reduced EF CHF 20-25% - cardiology following H/o CVA - with memory deficits, 24/01 caregiver Back pain - patient notes is chronic, lidoderm patch ordered Home meds DVT prophylaxis Full code Trend lab Comment Review of Relevant I have reviewed the following items ely (where applicable) has been applied. Medications: Current Medications Medications (Trade) Dose Ordered Sig/Irwin Route PRN Reason Start Time Stop Time Status Last Admin Dose Admin Insulin Glargine (Lantus Syringe) 30 unit QHS SQ 02/24/20 21:00 02/24/20 21:30 Cefazolin Sodium/ Dextrose 50 ml @ 100 mls/hr Q8HRS IV 02/24/20 14:00 02/25/20 05:43 Miscellaneous (Lidoderm Patch Removal) 1 ea QHS MC 02/24/20 21:00 02/24/20 21:00 ANTOINE GREY III DO Feb 25, 2020 11:55
[2020-02-25] MEDS: METOPROLOL SUCC 24HR ER 25 MG TAB.ER.24H. PO SCH (13:39)
[2020-02-25 13:47] LABS: CHOLESTEROL/HDL RATIO 10.7
[2020-02-25] MEDS ORDERED: LIDOCAINE WITH 8.4% SOD BICARB 3 ML DISP.SYRIN. ONE (14:36)
[2020-02-25] MEDS ORDERED: LIDOCAINE WITH 8.4% SOD BICARB 3 ML DISP.SYRIN. INJ ONE (14:45)
[2020-02-25 14:53] VITALS: BP 158/89
--- NOTE | 2020-02-25 16:13 | RAD ---
Exam: Fluoroscopic and ultrasound guided right percutaneous inserted central venous catheter placement 02/25/2020 2:09 PM .Indication: iv antibiotics Technique: Informed oral and written consent were obtained. The right upper extremity was prepped and draped using sterile barrier technique. All elements of maximal sterile barrier technique including the use of a cap, mask, sterile gown, sterile gloves, large sterile sheet, appropriate hand hygiene, and 2% chlorhexidine for cutaneous antisepsis (or acceptable alternative antiseptic per current guidelines) were followed for this procedure.. Real-time ultrasound demonstrated a patent right basilic vein which was prepped and draped in usual sterile fashion. 1% lidocaine used for local anesthesia. Using real-time ultrasound guidance the access needle percutaneously punctured the selected right basilic vein. Reference ultrasound images were saved to the medical record. A guidewire was advanced through the needle to the cavoatrial junction, and a peel-away sheath placed. The catheter was cut to length and inserted through the peel-away sheath such that its tip is at the cavoatrial junction. The wire and sheath were removed, and the catheter secured in place, and a sterile dressing was applied. Catheter was found to flush and aspirate normally. No immediate complications are identified. FLUORO TIME: 1.5 DOSE AREA PRODUCT: 2 Gycm2 Impression: Ultrasound and fluoroscopically guided placement of a right upper extremity PICC line.
[2020-02-25 19:00] VITALS: BP 149/93
[2020-02-25] MEDS ORDERED: ATORVASTATIN CALCIUM 20 MG TABLET PO SCH (21:00)
[2020-02-25] MEDS: PATCH REMOVAL. MC SCH (21:00)
[2020-02-25] MEDS: INSULIN GLARGINE SYRINGE. SQ SCH (21:51)
[2020-02-25 22:39] VITALS: BP_SYST 149; BP_SYST 161; BP_DIAS 93; BP_DIAS 98
[2020-02-25] MEDS: oxyCODONE/APAP 10/325 1 TAB TABLET PO PRN (22:52)
[2020-02-26 03:00] VITALS: BP 138/89
[2020-02-26] MEDS: HEPARIN for SUB-Q USE 5,000 UNIT/ML VIAL. SQ SCH ×2 (06:44→14:00)
[2020-02-26 07:25] VITALS: BP 166/90
[2020-02-26] MEDS: INSULIN LISPRO 300 UNITS/3 ML VIAL. SQ SCH ×3 (07:30→16:30)
[2020-02-26] MEDS ORDERED: ASPIRIN ENTERIC COATED 81 MG TABLET.DR. PO SCH (08:00)
[2020-02-26] MEDS: METOPROLOL SUCC 24HR ER 25 MG TAB.ER.24H. PO SCH (08:33)
[2020-02-26] MEDS: LIDOCAINE (700MG/PATCH) PATCH. TD SCH (08:33)
[2020-02-26] MEDS: LACTOBACILLUS RHAMNOSUS GG 1 CAPSULE. PO SCH (08:33)
--- NOTE | 2020-02-26 10:37 | PDOC ---
Infectious Disease Note Subjective Subjective Feels better. Denies F/C/S/N/V/D/SOA Vital Sign Vital Signs Vital Signs Date Time Temp Pulse Resp B/P (MAP) Pulse Ox O2 Delivery O2 Flow Rate FiO2 02/26/20 08:33 109 166/90 02/26/20 07:25 98.0 18 100 Room Air 98.0 02/25/20 10:10 2.0 Physical Exam PHYSICAL EXAM CONSTITUTIONAL: She is alert. She is cooperative. She is better. She is in no acute distress. HEENT: Pupils equal and reactive. She has normal conjunctivae. Oral cavity, pharynx is clear. She is edentulous. NECK: Supple, no JVD. No nuchal rigidity. LUNGS: Crackles and on 02 HEART: S1, S2, mild tachycardic. ABDOMEN: Soft, nontender, no guarding, no rebound.- distended GENITOURINARY: Ojeda is in place. EXTREMITIES: Left BKA. Right extremity without edema. She has a well-healed scar in her first three toes. SKIN: Without signs of rash. She does have mitts in place. Peripheral IVs. NEUROLOGIC: nonfocal, answers questions, Oriented PSYCHIATRIC: Appropriate PICC line is clean Labs Lab Laboratory Tests Test 02/25/20 11:00 02/25/20 13:15 02/25/20 14:46 02/25/20 15:58 Glucose (Fingerstick) 126 mg/dL (70-99) 120 mg/dL (70-99) 177 mg/dL (70-99) Triglycerides Level 188 mg/dL (0-150) Cholesterol Level 171 mg/dL (0-200) LDL Cholesterol, Calculated 117 mg/dL (0-100) VLDL Cholesterol, Calculated 38 mg/dL (0-40) Non-HDL Cholesterol Calculated 155 mg/dL (0-129) HDL Cholesterol 16 mg/dL (40-60) Cholesterol/HDL Ratio 10.7 Thyroid Stimulating Hormone (TSH) 1.552 uIU/mL (0.358-3.74) Test 02/25/20 20:14 02/26/20 07:44 Glucose (Fingerstick) 192 mg/dL (70-99) 148 mg/dL (70-99) Micro Microbiology 02/23/20 Blood Culture - Preliminary, Resulted NO GROWTH AFTER 2 DAYS 02/20/20 Urine Culture - Final, Complete 02/20/20 Antimicrobic Susceptibility - Final, Complete Objective Assessment Staph aureus sepsis 02/19 - MSSA,,,, 02/22 neg Sepsis - POA Fever Leukocytosis -some better UTI - POA 02/19 Ecoli BEN Encephalopathy - slow resolution but better DKA PICC placed 02/20 Plan Plan of Care Repeat blood cults NEG echo NEG Cefazolin F/u labs and cults Electrolytes per primary ss to arrange for home antibiotics D/W Pt and her , pros and cons discussed, process discussed DANNY SNEED MD Feb 26, 2020 10:37
--- NOTE | 2020-02-26 10:48 | NUR ---
[facility] following. Discussed with RN and Dr. Mcghee - plan for IV cefazolin at home, can dc today per ID. [facility] notified [facility] - they will come do the teach today. Pt is covered at 100% for home infusion. Awaiting script to fax to [facility]. [facility] about whether [facility] are in network with pt's insurance. [facility] will continue to follow. Addendum: 02/26/20 at 1145 by FERNY REYNA Script faxed to [facility]. Pt having a SCOOBY at 1500 today. [facility] is in network with pt's insurance. [facility]EL will continue to follow. Addendum: 02/26/20 at 1617 by FERNY REYNA [facility] transportation scheduled to [phone]. Yohannes discovered pt's insurance is [employer] out of [place] which they are not in network with. Awaiting call back from [facility] to determine if they can do the nursing for pt. SW will continue to follow. RN notified.
[2020-02-26 11:00] VITALS: BP 153/76
[2020-02-26] MEDS ORDERED: CEFAZOLIN IV (11:37)
--- NOTE | 2020-02-26 11:39 | SNU/HH DC ---
DISCHARGE WITH HOME HEALTH DISCHARGE INFORMATION: Discharge Date: Feb 26, 2020 Final Diagnosis: Problems Medical Problems: (1) DKA (diabetic ketoacidoses) Status: Acute (2) Fever Status: Acute (3) Leukocytosis Status: Acute (4) Nausea & vomiting Status: Acute (5) Person under investigation for COVID-19 Status: Acute (6) Sepsis Status: Acute Condition on Discharge: Guarded CODE STATUS: Code Status: Full HOME HEALTH: Face to Face: I certify this patient is under my care and that I, or a nurse practitioner or physician's assistant director of admissions working with me, had a face to face encounter that meets the physician face to face encounter requirements with this patient on []. Medical Complications: DM, Other (MSSA bacteremia) Halfway For: Admin/Educate Injections, Medication Management RN For Eval/Treatment: Yes Physical Therapy For: Evalulation/Treatment Occupational Therapy For: Evaluation/Treatment Home Health Aide For: Self-care Pt Meets Homebound Status: Extreme weakness w/ amb., Other: (Amputation) POST DISCHARGE ORDERS: Activity Instructions for Disc: Activity as tolerated Weight Bearing Status after Di: As tolerated DIET AFTER DISCHARGE: ADA FOLLOW-UP: Follow up with: PCP within 1 week of discharge Follow Up With: Infectious disease for antibiotic discontinuation CERTIFICATION STATEMENT: Certification Statement: Certification Statement: Based on the above finding, I certify that this patient is confined to the home and needs intermittent detention care, physical therapy and/or speech therapy, or continues to need occupational therapy.~ This patient is under my care, and I have initiated the establishment of the plan of care.~ This patient will be followed by myself or a community physician who will periodically review the plan of care. Home Meds Reported Medications Amlodipine Besylate (AMLODIPINE BESYLATE) 10 Mg Tablet, 10 MG PO DAILY for htn, TAB 02/22/20 Insulin Lispro (HUMALOG) 100 Unit/1 Ml Vial, 10 UNIT SQ TIDAC for dm, VIAL 02/22/20 Insulin Glargine,Hum.rec.anlog (LANTUS SOLOSTAR) 100 Unit/1 Ml Insuln.pen, 60 UNIT SQ QHS for dm, #15 ML 3 Refills 02/22/20 FREDA NEFF MD Feb 26, 2020 11:39
[2020-02-26] MEDS: oxyCODONE/APAP 10/325 1 TAB TABLET PO PRN (12:23)
--- NOTE | 2020-02-26 13:32 | PDOC ---
[employer] PROGRESS NOTE Date of Service DOS: DATE: 02/26/20 TIME: 13:26 Chief Complaint Chief Complaint DKA MSSA bacteremiapending SCOOBY per cardiology. Appreciate recommendations for anticipating discharge. Sepsis UTI BEN Acute hypoxia Acute metabolic Encephalopathy Severely reduced EF CHF 20-25% H/o CVA Back pain History of Present Illness History of Present Illness 02/25/2020 No acute events overnight. Continues to be on IV cefazolin. No complaints today. Tolerating diet. Pending SCOOBY per cardiology 02/25/2020 Patient seen and examined Chart reviewed Discussed with RN She is on IV cefazolin Discussed with immigration case manager Ms Ariza is a 54-year-old female w/ PMHx diabetes, HTN, prior CVA, s/p L BKA and right foot partial toe amputations admitted to [facility] on the evening of 02/19 with complaints of nausea and vomiting starting the day before. She is uncertain where she is and is overall a poor historian, knows her caregiver's name, but otherwise has little insight into her medical history. She was found in DKA and initially admitted to ICU. Seen by ID for MSSA bacteremia found on cultures from admission. Initially started on treatment with cefepime and daptomycin. 02/21: Echo: The left ventricle is normal size. The systolic function is severely impaired. The Ejection Fraction is 20-25%. There is severe global hypokinesis of the left ventricle. There is mild concentric left ventricular hypertrophy. Doppler and Color Flow revealed no significant aortic regurgitation. There is no significant aortic valvular stenosis. Doppler and Color-flow revealed mild mitral regurgitation. Doppler and Color Flow revealed trace tricuspid regurgitation with a estimated PAP of 21 mmHg. Afebrile. C/o lower back pain, notes it is chronic. She forgets why she is here, does not recall diagnosis of bacteremia. Changed to cefazolin for MSSA per ID. PICC in place. Vitals/I&O Vitals/I&O: Vital Signs Date Time Temp Pulse Resp B/P (MAP) Pulse Ox O2 Delivery O2 Flow Rate FiO2 02/26/20 12:23 Room Air 02/26/20 11:00 98.3 98 18 153/76 (101) 97 98.3 02/25/20 10:10 2.0 I & O 02/25/20 02/25/20 02/26/20 15:00 23:00 07:00 Intake Total 200 ml 200 ml Output Total 0 ml Balance 200 ml 200 ml 0 ml Physical Exam Physical Exam: CONSTITUTIONAL: She is alert. She is cooperative. She is better. She is in no acute distress. HEENT: Pupils equal and reactive. She has normal conjunctivae. Oral cavity, pharynx is clear. She is edentulous. NECK: Supple, no JVD. No nuchal rigidity. LUNGS: Crackles and on 02 HEART: S1, S2, mild tachycardic. ABDOMEN: Soft, nontender, no guarding, no rebound.- distended GENITOURINARY: Ojeda is in place. EXTREMITIES: Left BKA. Right extremity without edema. She has a well-healed scar in her first three toes. SKIN: Without signs of rash. She does have mitts in place. Peripheral IVs. NEUROLOGIC: nonfocal, answers questions, Oriented PSYCHIATRIC: Appropriate PICC line is clean General: Alert, Oriented X3, Cooperative, No acute distress Heart: Regular rate, Normal S1, Normal S2 Lungs: Clear Abdomen: Soft, No tenderness Extremities: No edema, Other (left BKA ) Skin: No significant lesion Labs Labs: Laboratory Tests Test 02/25/20 14:46 02/25/20 15:58 02/25/20 20:14 02/26/20 07:44 Glucose (Fingerstick) 120 mg/dL (70-99) 177 mg/dL (70-99) 192 mg/dL (70-99) 148 mg/dL (70-99) Test 02/26/20 11:33 Glucose (Fingerstick) 204 mg/dL (70-99) Assessment and Plan Assessmemt and Plan Problems Medical Problems: (1) DKA (diabetic ketoacidoses) Status: Acute (2) Fever Status: Acute (3) Leukocytosis Status: Acute (4) Nausea & vomiting Status: Acute (5) Person under investigation for COVID-19 Status: Acute (6) Sepsis Status: Acute Comment Review of Relevant I have reviewed the following items ely (where applicable) has been applied. Medications: Current Medications Medications (Trade) Dose Ordered Sig/Irwin Route PRN Reason Start Time Stop Time Status Last Admin Dose Admin Lidocaine HCl (Buffered Lidocaine 1%) 6 ml 1X ONCE INJ 02/25/20 14:45 02/25/20 14:46 DC 02/25/20 15:13 Aspirin (Ecotrin) 81 mg DAILYWBKFT PO 02/26/20 08:00 02/26/20 08:33 Atorvastatin Calcium (Lipitor) 20 mg QHS PO 02/25/20 21:00 02/25/20 21:43 Oxycodone/ Acetaminophen (Percocet 10/325) 1 tab PRN Q6HRS PRN PO MODERATE - SEVERE PAIN 02/25/20 22:15 02/26/20 12:23 FREDA NEFF MD Feb 26, 2020 13:32
[2020-02-26] MEDS ORDERED: LIDOCAINE 2% PF 5 ML VIAL. ONE (14:48)
[2020-02-26] MEDS ORDERED: PROPOFOL 10 MG/ML (20ML) VIAL. IV ONE (14:48)
[2020-02-26] MEDS ORDERED: FUROSEMIDE 40 MG TABLET. PO PRN (15:00)
[2020-02-26] MEDS ORDERED: METOPROLOL SUCC 24HR ER 25 MG TAB.ER.24H. PO ONE (15:00)
--- NOTE | 2020-02-26 15:03 | PDOC ---
CARDIO Progress Notes Date and Time Date of Service 02/26/2020 Time of Evaluation 1100 Vitals Vitals Vital Signs Date Time Temp Pulse Resp B/P (MAP) Pulse Ox O2 Delivery O2 Flow Rate FiO2 02/26/20 13:30 Room Air 02/26/20 11:00 98.3 98 18 153/76 (101) 97 98.3 02/25/20 10:10 2.0 Weight Weight [ ] Input and Output Intake and Output Intake and Output 02/26/20 07:00 Intake Total 400 ml Output Total 0 ml Balance 400 ml Intake Oral 400 ml Output Urine Total 0 ml # Voids 3 Laboratory Labs Laboratory Tests Test 02/25/20 14:46 02/25/20 15:58 02/25/20 20:14 02/26/20 07:44 Glucose (Fingerstick) 120 mg/dL (70-99) 177 mg/dL (70-99) 192 mg/dL (70-99) 148 mg/dL (70-99) Test 02/26/20 11:33 Glucose (Fingerstick) 204 mg/dL (70-99) Microbiology Micro Microbiology 02/23/20 Blood Culture - Preliminary, Resulted NO GROWTH AFTER 3 DAYS 02/20/20 Urine Culture - Final, Complete 02/20/20 Antimicrobic Susceptibility - Final, Complete Physical Exam HEENT: Neck Supple W Full Motion Chest: Symmetric LUNGS: Other (diminished bases) Heart: RRR (SR ) Abdomen: Soft N/T Extremities: No Calf Tenderness, Other (LBKA) Neurology: alert, oriented, follow commands Assessment Assessment 1. Nausea/vomiting: improved 2. DM2 with recent DKA 3. Leukocytosis, fevers, sepsis/bacteremia/UTI. BC with MSSA ID following 4. BEN; improved 5. Cardiomyopathy; Echo with LVEF 20-25%. New finding. No prior CV workup, compensated 6. Hypertension; labile episodes 7. Tobaccoism; discussed/encouraged cessation 8. Marijuana use 9. Metabolic encephalopathy: resolved 10. Suspect CKD3: Cr stable at 1.5 11. Hx of ACEi related angioedema Recommendations Ongoing antibiotic therapy for treatment of UTI, sepsis, bacteremia. SCOOBY to rule out endocarditis Will need further ischemic evaluation to rule out ICM. Most probably on an outpatient basis when sepsis resolved Increase toprol to 50 mg daily. HR goal 70. Follow up with Dr. Gonzalez in 2-3 weeks Lasix PRN. CHF education FR/2L FR, daily wt. HBPM Smoking and marijuana cessation Justicifation of Admission Dx: Justifications for Admission: Justification of Admission Dx: Yes Sepsis: End-Organ Dysfunction HANSA DOUGLASS OPTICAL DESIGN ENGINEER Feb 26, 2020 15:03
[2020-02-26] MEDS ORDERED: LIDOCAINE 2% TOPICAL JELLY 30GM TUBE. TP ONE ×2 (15:12→15:45)
[2020-02-26] MEDS ORDERED: LIDOCAINE 2% VISCOUS 15 ML SOLUTION. ONE (15:12)
[2020-02-26] MEDS ORDERED: BENZOCAINE ONE 20% MUCOSAL SPRAY. (15:12)
[2020-02-26] MEDS ORDERED: LIDOCAINE 2% VISCOUS 15 ML SOLUTION. SWSW PRN (15:30)
[2020-02-26] MEDS ORDERED: BENZOCAINE ONE 20% MUCOSAL SPRAY. MM (15:30)
[2020-02-26] MEDS ORDERED: LIDOCAINE 2% JELLY 6ML IN APPLICATOR. MM ONE (15:30)
[2020-02-26] MEDS ORDERED: LIDOCAINE 2% VISCOUS 15 ML SOLUTION. SWSW ONE (15:45)
--- NOTE | 2020-02-26 16:00 | CARD ---
MR#: [id number] Date of Study: 02/26/2020 Ordering Physician: KAROLYN PADILLA, Referring Physician: KAROLYN PADILLA Tech: Fannie Warner RDCS APPROVED REPORT EXAM: Transesophageal echocardiogram with color flow Doppler. INDICATION Infection:Rule out subacute bacterial endocarditis Reason For Test : Rule out endocarditis. PROCEDURE After obtaining informed consent, patient underwent transesophageal echo in the PACU. Type of Sedation : General Anesthesia Sedation was administered by Nicolás Galloway CRNA. Sedation was achieved with Propofol 80 mg intravenously. Transesophageal probe was inserted and advanced into esophagus by Karolyn Padilla MD. The SCOOBY was performed without complications. Throughout the procedure, the blood pressure, pulse oximetry, cardiac rhythm, and rate were monitored . The patient tolerated the procedure without adverse effects. Recovery from general anesthesia was une ventful and vital signs were stable. LEFT VENTRICLE The left ventricle is normal size. There is mild to moderate concentric left ventricular hypertrophy. The left ventricular systolic function is mildly decreased. EF 40-45% There is mild global hypokines is. No left ventricle thrombus noted on this study. There is no ventricular septal defect visualized. There is no left ventricular aneurysm. There is no mass noted in the left ventricle. RIGHT VENTRICLE The right ventricle is normal size. There is normal right ventricular wall thickness. The right ventr icular systolic function is normal. ATRIA The left atrium size is normal. The right atrium size is normal. The interatrial septum is intact wit h no evidence for an atrial septal defect or patent foramen ovale as noted on 2-D or Doppler imaging. There is no thrombus noted in the left atrial appendage. AORTIC VALVE The aortic valve is normal in structure and function. Doppler and Color Flow revealed no significant aortic regurgitation. There is no aortic valvular vegetation. MITRAL VALVE The mitral valve is normal in structure and function. There is no evidence of mitral valve prolapse o r vegetation. Doppler and Color-flow revealed trace mitral regurgitation. TRICUSPID VALVE The tricuspid valve is normal in structure and function. Doppler and Color Flow revealed mild tricusp id regurgitation. There is no tricuspid valve prolapse or vegetation. PULMONIC VALVE The pulmonary valve is normal in structure and function. Doppler and Color Flow revealed trace pulmon ic valvular regurgitation. There is no pulmonic valvular stenosis. GREAT VESSELS The aortic root is normal in size. The ascending aorta is normal in size. The IVC is normal in size a nd collapses >50% with inspiration. Critical Notification Critical Value: No <Conclusion> There is mild to moderate concentric left ventricular hypertrophy. The left ventricular systolic function is mildly decreased. EF 40-45% There is mild global hypokinesis. There is no thrombus noted in the left atrial appendage. No evidence of endocarditis on the valvular structures. Signed by : Karolyn Padilla, Electronically Approved : 02/26/2020 15:59:53
[2020-02-26] MEDS ORDERED: METO-239 PO (17:32)
[2020-02-26 17:57] VITALS: BP 149/83
--- NOTE | 2020-02-26 18:30 | NUR ---
Discharge Note: Patient was discharged home with home health services, for IV home antibiotic infusions. Patient was discharged with right upper arm PICC line. Dressing was changed today prior to discharge. Patient was given discharge summary/instructions, follow-ups, and educational material. Patient was educated on CHF and medications (Metoprolol 50mg and Lasix 40mg) were called into patients preferred pharmacy by this RN. Patient was taken home via [facility] through [facility]. Patient took all personal belongings with her.
[2020-02-26] MEDS ORDERED: ATORVASTATIN CALCIUM 40 MG TABLET. PO SCH (21:00)
[2020-02-27] MEDS ORDERED: METOPROL PO SCH (09:00)
--- NOTE | 2020-03-13 19:08 | PDOC3 ---
[facility]-Discharge Summary Date of Admission: Date of Admission: Feb 21, 2020 Date of Discharge: Date of Discharge: Feb 26, 2020 Admission Diagnosis: Admitting Diagnosis: Hyperosmolar nonketotic state Leukocytosis most likely secondary to severe dehydration Gram-positive cocci in clusters bacteremia Normocytic anemia Thrombocytopenia which could be related to infectious process Acute renal failure secondary to vasomotor nephropathy most likely Talk screen positive for opiates and marijuana Discharge Diagnosis: Discharge Diagnosis: DKA MSSA bacteremiapending SCOOBY per cardiology. Appreciate recommendations for an ticipating discharge. Sepsis UTI BEN Acute hypoxia Acute metabolic Encephalopathy Severely reduced EF CHF 20-25% H/o CVA Back pain Consults: Consults: Cardiology Hospital Course: Hospital Course: 54-year-old female w/ PMHx diabetes, HTN, prior CVA, s/p L BKA and right foot partial toe amputations admitted to [facility] on the evening of 02/19 with complaints of nausea and vomiting starting the day before. She is uncertain where she is and is overall a poor historian, knows her caregiver's name, but otherwise has little insight into her medical history. She was found in DKA and initially admitted to ICU. Seen by ID for MSSA bacteremia found on cultures from admission. Initially started on treatment with cefepime and daptomycin. Patient overall improved clinically throughout her hospital stay. She was evaluated by cardiology and recommended: Ongoing antibiotic therapy for treatment of UTI, sepsis, bacteremia. Will need further ischemic evaluation to rule out ICM. Most probably on an outpatient basis when sepsis resolved Increase toprol to 50 mg daily. HR goal 70. Follow up with Dr. Gonzalez in 2-3 weeks Lasix PRN. CHF education FR/2L FR, daily wt. HBPM Smoking and marijuana cessation Patient will be continued on IV cefazolin and she will follow-up with cardiology for SCOOBY. The rest of her hospital course was uneventful Physical exam on day of discharge: General: Alert, Oriented X3, Cooperative, No acute distress Heart: Regular rate, Normal S1, Normal S2 Lungs: Clear Abdomen: Soft, No tenderness Extremities: No edema, Other (left BKA ) Skin: No significant lesion Disposition: Disposition/Orders: D/C to Home Activity: Activity: Resume previous activity Diet: Diet: Cardiac Medications: Home Meds Active Scripts [ceFAZolin 2GM PREMIX] No Conflict Check, 2 GM IV Q8HRS for bacteremia for 7 D ays Prov:FREDA NEFF MD 02/26/20 Reported Medications Metoprolol Succinate (METOPROLOL SUCCINATE ( XL )) 25 Mg Tab.er.24h, 2 TAB PO DAILY for heartrate control, #30 TAB 5 Refills 02/26/20 Amlodipine Besylate (AMLODIPINE BESYLATE) 10 Mg Tablet, 10 MG PO DAILY for htn, TAB 02/22/20 Insulin Lispro (HUMALOG) 100 Unit/1 Ml Vial, 10 UNIT SQ TIDAC for dm, VIAL 02/22/20 Insulin Glargine,Hum.rec.anlog (LANTUS SOLOSTAR) 100 Unit/1 Ml Insuln.pen, 60 UNIT SQ QHS for dm, #15 ML 3 Refills 02/22/20 Scheduled Amlodipine Besylate (Amlodipine Besylate), 10 MG PO DAILY, (Reported) Insulin Glargine,Hum.rec.anlog (Lantus Solostar), 60 UNIT SQ QHS, (Reported) Insulin Lispro (Humalog), 10 UNIT SQ TIDAC, (Reported) Metoprolol Succinate (Metoprolol Succinate ( Xl )), 2 TAB PO DAILY, (Reported) [Cefazolin], 2 GM IV Q8HRS Total Time: Total Time: Total time spent was 35 minutes in preparing scripts, discharge planning with SWI and RN and preparing this discharge summary Justicifation of Admission Dx: Justifications for Admission: Justification of Admission Dx: Yes Sepsis: End-Organ Dysfunction FREDA NEFF MD Mar 13, 2020 19:08
== END 2020-02-26 18:30 | disposition home health service (06) | DRG 871 ==
LOC: ER 15:58 → ED HOLD 17:38 → 5 NORTH 19:10 → 1 WEST ICU 22:00 → 5 NORTH 02-21 18:30
PROVIDERS: ADMIT Family Medicine; ATTEND Family Medicine
PROC: 02HV33Z Insertion of Infusion Device into Superior Vena Cava, Percutaneous Approach (ICD-10-PCS; principal; 2020-02-25)
PROC: B5181ZA Fluoroscopy of Superior Vena Cava using Low Osmolar Contrast, Guidance (ICD-10-PCS; 2020-02-25)
PROC: B548ZZA Ultrasonography of Superior Vena Cava, Guidance (ICD-10-PCS; 2020-02-25)
PROC: B24BZZ4 Ultrasonography of Heart with Aorta, Transesophageal (ICD-10-PCS; 2020-02-26)
DX: A41.01 Sepsis due to Methicillin susceptible Staphylococcus aureus (principal); N17.0 Acute kidney failure with tubular necrosis; E11.10 Type 2 diabetes mellitus with ketoacidosis without coma; G93.41 Metabolic encephalopathy; I42.9 Cardiomyopathy, unspecified; I50.20 Unspecified systolic (congestive) heart failure; N39.0 Urinary tract infection, site not specified; I13.0 Hypertensive heart and chronic kidney disease with heart failure and stage 1 through stage 4 chronic kidney disease, or unspecified chronic kidney disease; B96.20 Unspecified Escherichia coli [E. coli] as the cause of diseases classified elsewhere; D64.9 Anemia, unspecified; D69.6 Thrombocytopenia, unspecified; E78.5 Hyperlipidemia, unspecified; E86.0 Dehydration; F12.90 Cannabis use, unspecified, uncomplicated; F17.210 Nicotine dependence, cigarettes, uncomplicated; R09.02 Hypoxemia; Z20.828 Contact with and (suspected) exposure to other viral communicable diseases; Z79.4 Long term (current) use of insulin; Z82.49 Family history of ischemic heart disease and other diseases of the circulatory system; Z86.73 Personal history of transient ischemic attack (TIA), and cerebral infarction without residual deficits; Z89.512 Acquired absence of left leg below knee; Z79.899 Other long term (current) drug therapy; Z88.8 Allergy status to other drugs, medicaments and biological substances; Z71.6 Tobacco abuse counseling; E11.22 Type 2 diabetes mellitus with diabetic chronic kidney disease; N18.3 Chronic kidney disease, stage 3 (moderate)
CPT/HCPCS: 36415; 36573; 36600; 71045; 77001; 80048; 80053; 80061; 80307; 81001; 82140; 82553; 82805; 82962; 83605; 83690; 83735; 83880; 84100; 84145; 84443; 85007; 85025; 85610; 85730; 87040; 87086; 87205; 93306; 93312; 96361; 96365; 96375; C1751; C1892; G0480; J0456; J0690; J0692; J0696; J0878; J1644; J1815; J1940; J2060; J2704; J3480; J3490; J7030; J7050; 99285-25; G0378; U0003-CS